=== PATIENT | male | born 1940 | race Caucasian/White ===

== ENCOUNTER → 2017-09-10 | Outpatient (CLI) | payer MEDICARE ==
--- NOTE | 2017-09-10 11:29 | US ---
EXAMINATION TYPE: US kidneys/renal and bladder DATE OF EXAM: 09/10/2017 COMPARISON: NONE CLINICAL HISTORY: R79.89 ABN FINDINGS OF BLOOD CHEMISRTY. Patient on metformin and has ab renal funct ion tests EXAM MEASUREMENTS: Right Kidney: 10.0 x 4.4 x 4.9 cm Left Kidney: 11.8 x 5.6 x 5.8 cm Right Kidney: No hydronephrosis or masses seen Left Kidney: 10.6cm exophytic cyst seen superior pole Bladder: wnl Bilateral Jets seen: yes There is no evidence for hydronephrosis at this point in time. No nephrolithiasis is seen. The urina ry bladder is anechoic. Bilateral ureteral jets are seen. IMPRESSION: Large right simple appearing renal cyst measuring up to 15.8 cm. No evidence of hydronephrosis or nep hrolithiasis.
== END | disposition home or self-care (01) ==
LOC: RADUSWWP 09:36
PROVIDERS: ATTEND Family Medicine
DX: R79.89 Other specified abnormal findings of blood chemistry (principal)
CPT/HCPCS: 76770

== ENCOUNTER → 2017-12-16 | Outpatient (CLI) | payer MEDICARE ==
--- NOTE | 2017-12-16 13:01 | US ---
EXAMINATION TYPE: US kidneys/renal and bladder DATE OF EXAM: 12/16/2017 COMPARISON: US CLINICAL HISTORY: N28.1 Cyst of kidney acquired. F/U renal cyst from previous EXAM MEASUREMENTS: Right Kidney: 10.0 x 4.4 x 5.3 cm Left Kidney: 11.6 x 4.8 x 4.9 cm Right Kidney: No evidence of hydro, possible two small calcifications lower pole 3mm and 5mm in size Left Kidney: Cyst upper pole as seen on previous= 10.0 x 9.6 x 11.2 cm Bladder: wnl Bilateral Jets seen: Only left jet visualized There is no evidence for hydronephrosis at this point in time. No nephrolithiasis is seen. No selma s are identified. The urinary bladder is anechoic. Bilateral ureteral jets are seen. IMPRESSION: 1. Nonobstructing right-sided nephrolithiasis. 2. Large cyst upper pole left kidney.
== END | disposition home or self-care (01) ==
LOC: RADUSWWP 12:11
PROVIDERS: ATTEND Family Medicine
DX: N28.1 Cyst of kidney, acquired (principal); N20.0 Calculus of kidney
CPT/HCPCS: 76770

== ENCOUNTER → 2018-12-24 | Outpatient (CLI) | payer MEDICARE ==
--- NOTE | 2018-12-24 22:52 | CONS ---
CONSULTATION DATE OF SERVICE: 12/24/2018 This patient is a 78-year-old gentleman who has been evaluated in Sleep Center for obstructive sleep apnea-hypopnea syndrome. HISTORY OF PRESENT ILLNESS/SLEEP-WAKE EVALUATION: This patient was diagnosed with obstructive sleep apnea in 2003. His last sleep study was done in 2009. He continues to use his CPAP equipment, but his machine is extremely old. He wakes up from sleep 3 times with nocturia while he is using his CPAP. His sleep schedule is from midnight until 6 or 6:30 in the morning. He does not have a TV in the bedroom. He snores and has episodes of stopped breathing during sleep. No history of hypnagogic hallucinations, sleep paralysis or cataplexy. [place] Sleepiness Scale is significantly increased at 15. PAST MEDICAL HISTORY: Past medical history is positive for: 1. Diabetes. 2. Periodic limb movements in the past. 3. Hyperlipidemia. 4. Sinus problems. 5. Increasing eye pressure. 6. Swelling of the legs. PAST SURGICAL HISTORY: Tooth extractions. MEDICATIONS: 1. Tradjenta. 2. Lisinopril. 3. Glimepiride. 4. Amlodipine. 5. Simvastatin. 6. Aspirin. SOCIAL HISTORY: Negative for smoking or using alcohol. FAMILY HISTORY: Stroke, hypertension, lung problems, diabetes. REVIEW OF SYSTEMS: Awakenings from sleep, sleepiness during the day, swelling of the legs. PHYSICAL EXAMINATION: GENERAL: A pleasant gentleman without distress. VITAL SIGNS: BP 131/74, HR 85, RR 16, height 5 feet 5-3/4 inches, weight 204.4 pounds, body mass index 33.2, temperature 98.0, oxygen saturation at room air 96%. HEENT: PERRLA, EOMI. Evaluation of oropharynx showed tongue protrudes midline. Short distance between soft palate and posterior pharyngeal wall. Restriction of nasal breathing. NECK: Supple. No JVD. Thyroid is not palpable. Wide neck; 16-1/2 inches in circumference. LUNGS: Clear to percussion and to auscultation. Good air exchange. No wheezing or rhonchi. HEART: S1, S2 regular. No murmurs, gallops or rubs. ABDOMEN: Obese. EXTREMITIES: Swelling of ankles 1+ bilaterally. RESORT DESK CLERK: Awake, alert, and oriented X3. Cranial nerves 2 to 7 intact. There is no fasciculation or atrophy. noted. No focal deficits observed. IMPRESSION: 1. History of obstructive sleep apnea, snoring, awakenings from sleep multiple times with nocturia, restriction of nasal breathing, wide neck; obstructive sleep apnea- hypopnea syndrome. 2. Obesity with body mass index of 33.2. 3. Hypertension. 4. Diabetes mellitus. 5. History of periodic limb movements in the past. 6. Hyperlipidemia. 7. Increased eye pressure. 8. History of sinusitis. PLAN: 1. Polysomnography for evaluation of patient's breathing during sleep. 2. CPAP/BiPAP titration if sleep study confirms obstructive sleep apnea-hypopnea syndrome. 3. Preferable position during sleep on the side. 4. No driving if patient feels any sleepiness. 5. I will see patient for follow up visit to explain results of testing and following plan. Thank you very much for allowing me to participate in the management of your patient. Sincerely, Conor Peña MD, PhD, FAASM Diplomat of [employer] [employer] [employer] Chief Clinical Dietitian of [facility] MMODL / IJN: [id number] /
== END | disposition home or self-care (01) ==
LOC: SLEEP 15:13
PROVIDERS: ATTEND Internal Medicine
DX: G47.33 Obstructive sleep apnea (adult) (pediatric) (principal); E66.9 Obesity, unspecified; I10 Essential (primary) hypertension; E11.9 Type 2 diabetes mellitus without complications; E78.5 Hyperlipidemia, unspecified; H40.059 Ocular hypertension, unspecified eye; Z68.33 Body mass index [BMI] 33.0-33.9, adult; Z87.09 Personal history of other diseases of the respiratory system; Z99.89 Dependence on other enabling machines and devices; Z79.82 Long term (current) use of aspirin; Z79.84 Long term (current) use of oral hypoglycemic drugs; Z79.899 Other long term (current) drug therapy
CPT/HCPCS: 99211

== ENCOUNTER → 2019-06-24 | Outpatient (CLI) | payer MEDICARE ==
--- NOTE | 2019-06-24 15:52 | PN ---
PROGRESS NOTE DATE OF SERVICE: 06/24/2019 This patient is an 79-year-old gentleman who has been followed in Sleep Center for treatment of obstructive sleep apnea-hypopnea syndrome. In 2019 we did a polysomnogram which showed severe sleep apnea with apnea-hypopnea index 65.5. Then during titration at the pressure of 10 cm of water, apnea-hypopnea index was reduced to only 0.4 with oxygen level above 92.7%. Today the patient is coming for his first time with his new CPAP unit, which was recommended to use with CPAP pressure of 10 cm of water. The patient is able to use CPAP equipment every night for the whole night. He likes the new machine. It is very quiet compared to his previous unit. I checked his CPAP unit. CPAP pressure is 10 cm of water. The patient demonstrated 100% compliance with treatment, using it every night for more than 4 hours; average usage 6.8 hours per night. Leak is very high at 50 L/minute. The patient is using a nasal pillow mask and possibly opens his mouth. Apnea-hypopnea index is 8.4, which is slightly above the normal range. MEDICATIONS: Tradjenta, lisinopril, glimepiride, amlodipine, simvastatin, aspirin. PHYSICAL EXAMINATION: GENERAL: A pleasant patient in no distress. VITAL SIGNS: BP 148/69, HR 80, RR 16, weight 204, temperature 97.6, oxygen saturation at room air 96%. HEENT: PERRLA, EOMI. Evaluation of oropharynx showed tongue protrudes midline. Moderately low position of soft palate. Mallampati III. Big uvula. Wide pillars. NECK: Supple. No JVD. Thyroid is not palpable. LUNGS: Clear to percussion and to auscultation. Good air exchange. No wheezing or rhonchi. HEART: S1, S2 regular. No murmurs, gallops or rubs. ABDOMEN: Obese. EXTREMITIES: No clubbing or cyanosis. ENVIRONMENTAL HEALTH NURSE: Awake, alert, and oriented X3. Cranial nerves 2 to 7 intact. There is no fasciculation or atrophy. noted. No focal deficits observed. IMPRESSION: 1. Severe obstructive sleep apnea-hypopnea syndrome. The patient demonstrated 100% compliance with treatment, benefitting from treatment. 2. Significant leak reading from the machine; possibly patient opens his mouth during sleep. 3. Hypertension. 4. Diabetes mellitus. 5. Hyperlipidemia. 6. Increased eye pressure. 7. History of sinusitis. PLAN: 1. Patient will continue to use CPAP equipment every night for the whole night. 2. Prescription for chin strap. 3. Losing weight. 4. Sleep hygiene with regular time in bed for 7-1/2 hours. 5. No driving if feeling any sleepiness. Thank you very much for allowing me to participate in the management of your patient. Sincerely, Conor Peña MD, PhD, FAASM Diplomat of [employer] [place] [employer] Project Drilling Engineer of [facility] [place] MMODL / IJN: [id number] /
== END | disposition home or self-care (01) ==
LOC: SLEEP 13:45
PROVIDERS: ATTEND Internal Medicine
DX: G47.33 Obstructive sleep apnea (adult) (pediatric) (principal); I10 Essential (primary) hypertension; E11.9 Type 2 diabetes mellitus without complications; E78.5 Hyperlipidemia, unspecified; Z87.09 Personal history of other diseases of the respiratory system; H57.89 Other specified disorders of eye and adnexa; Z79.84 Long term (current) use of oral hypoglycemic drugs; Z79.82 Long term (current) use of aspirin; Z79.899 Other long term (current) drug therapy

== ENCOUNTER → 2019-12-16 | Outpatient (CLI) | payer MEDICARE ==
--- NOTE | 2019-12-16 16:58 | SFUN ---
SLEEP CENTER FOLLOW UP NOTE DATE OF SERVICE: 12/16/2019 An 79-year-old gentleman who has been followed in Sleep Center for treatment of obstructive sleep apnea-hypopnea syndrome. Patient successfully continues to use his CPAP equipment, sometime during the night, according to him, mask may go to the side. He is using Brevida nasal pillow mask and chinstrap. [place] Sleepiness Scale today is 7. I checked his CPAP unit. CPAP pressure 10 cm of water, usage 30/30 nights for more than 4 hours with average usage is 7 hours per night. High leak 47 L/minute. Apnea- hypopnea index reading 13.7. MEDICATIONS: Tradjenta, lisinopril, glimepiride, amlodipine, simvastatin, aspirin, Latanoprost eyedrops. PHYSICAL EXAM: Patient in no distress, BP 143/64, HR 74, RR 16, height 5, 6, weight 194. Patient lost about 10 pounds since previous visit. Temperature 98.2, oxygen saturation at room air 97%. OROPHARYNX: Low position of soft palate, Mallampati 3. ABDOMEN: Obese. NECK: Supple, no JVD. Thyroid is not palpable. LUNGS: Clear to percussion and to auscultation. Good air exchange. No wheezing or rhonchi. HEART: S1, S2 regular. No murmurs, gallops, or rubs. EXTREMITIES: No clubbing or cyanosis. DIGITAL PUBLISHING SPECIALIST: Awake, alert, and oriented X3. Cranial nerves 2 to 7 intact. There is no fasciculation or atrophy. noted. No focal deficits observed. IMPRESSION: 1. Severe obstructive sleep apnea-hypopnea syndrome, apnea-hypopnea index 65.5 on treatment with CPAP. Patient demonstrated 100% compliance with treatment, but apnea-hypopnea index slightly increased to 13.7 with high leak 47 L/minute. 2. Obesity. 3. Hypertension. 4. Diabetes mellitus. 5. Hyperlipidemia. 6. Increased eye pressure. 7. History of sinusitis. PLAN: 1. I changed pressure in the machine to automatic regimen, range of the pressure 7-14 cm of water. 2. Patient should use chinstrap every night. 3. Start to use new set of mask. 4. No driving if feeling sleepiness. 5. Watching and losing weight. Thank you very much for allowing me in participate in the management of your patients. Sincerely, Conor Peña MD, PhD, FAASM Diplomat of [place] [employer] Specialties [employer] Board of Internal Medicine Strategic Insights Lead of [facility] [place] MMOMER / YASMIN: [id number] /
== END | disposition home or self-care (01) ==
LOC: SLEEP 13:01
PROVIDERS: ATTEND Internal Medicine
DX: G47.33 Obstructive sleep apnea (adult) (pediatric) (principal); E66.9 Obesity, unspecified; I10 Essential (primary) hypertension; E11.9 Type 2 diabetes mellitus without complications; H40.059 Ocular hypertension, unspecified eye; E78.5 Hyperlipidemia, unspecified; Z87.09 Personal history of other diseases of the respiratory system; Z68.31 Body mass index [BMI] 31.0-31.9, adult; Z79.82 Long term (current) use of aspirin; Z79.84 Long term (current) use of oral hypoglycemic drugs; Z79.899 Other long term (current) drug therapy

== ENCOUNTER → 2020-03-09 | Outpatient (CLI) | payer MEDICARE ==
--- NOTE | 2020-03-09 22:41 | SFUN ---
SLEEP CENTER FOLLOW UP NOTE DATE OF SERVICE: 03/09/2020 This patient is an 80-year-old gentleman who has been followed in Sleep Center for treatment of obstructive sleep apnea-hypopnea syndrome. During his previous visit, apnea-hypopnea index had increased, and I changed the regimen of the pressure to automatic. Patient continues to use his equipment every night sleep. He sleeps okay with the machine. [place] Sleepiness Scale today is 8. I checked his CPAP unit. Range of the pressure is 7 to 14 with average pressure 9.5, usage 30/30 nights for more than 4 hours. Average usage 6.8 hours per night. Leak is 34 L/minute. Apnea-hypopnea index 11.1, which includes central apnea-hypopnea index 8.9. During his previous visit, average index was 13.7. Consequently there is some improvement. MEDICATIONS: 1. Tradjenta 5 mg once daily. 2. Lisinopril 10 mg once daily. 3. Glimepiride 1 mg once daily. 4. Amlodipine 5 mg once daily. 5. Simvastatin 20 mg once daily. 6. Aspirin 81 mg once daily. 7. Latanoprost 0.005% eye drops. PHYSICAL EXAMINATION: GENERAL: A pleasant patient in no distress. VITAL SIGNS: BP 150/81, HR 80, RR 15, height 5 feet 5 inches, weight 195 pounds. Body mass index 32.4. Temperature is 98.2, oxygen saturation at room air 97%. HEENT: PERRLA, EOMI. Evaluation of oropharynx showed tongue protrudes midline. Low position of soft palate. Mallampati III. NECK: Supple. No JVD. Thyroid is not palpable. LUNGS: Clear to percussion and to auscultation. Good air exchange. No wheezing or rhonchi. HEART: S1, S2 regular. No murmurs, gallops or rubs. ABDOMEN: Soft, nontender. No organomegaly. Bowel sounds are heard in all four quadrants. EXTREMITIES: No clubbing or cyanosis. FOREPART ROUNDER: Awake, alert, and oriented X3. Cranial nerves 2 to 7 intact. There is no fasciculation or atrophy. noted. No focal deficits observed. IMPRESSION: 1. Obstructive and central sleep apnea-hypopnea syndrome. The patient demonstrated 100% compliance with treatment, benefitting from treatment. Improvement in apnea- hypopnea index compared with the previous visit, but there are still abnormalities of respiration, central apneas in mild range, although no complaints from the patient on quality of sleep. 2. Hypertension. 3. Diabetes mellitus. 4. Obesity. 5. Hyperlipidemia. 6. Increased eye pressure. 7. History of sinusitis. PLAN: 1. Patient will continue to use PAP equipment every night for the whole night. 2. Sleep hygiene with regular time in bed for at least 7-1/2 to 8 hours. 3. Precautions related to driving. No driving if feeling sleepiness. 4. I will maintain all necessary prescription for PAP supplies including mask, tube, filters. 5. Watching weight. 6. No driving if feeling sleepiness. 7. Follow-up visit in 6 months or earlier if patient has any problems. Thank you very much for allowing me to participate in the management of your patient. Sincerely, Conor Peña MD, PhD, FAASM Diplomat of [employer] Specialties [employer] of Internal Medicine Slot Tag Inserter of [facility] [place] MMODL / IJN: [id number] /
== END | disposition home or self-care (01) ==
LOC: SLEEP 13:16
PROVIDERS: ATTEND Internal Medicine
DX: G47.33 Obstructive sleep apnea (adult) (pediatric) (principal); I10 Essential (primary) hypertension; E11.9 Type 2 diabetes mellitus without complications; E66.9 Obesity, unspecified; E78.5 Hyperlipidemia, unspecified; H40.059 Ocular hypertension, unspecified eye; Z99.89 Dependence on other enabling machines and devices; Z79.891 Long term (current) use of opiate analgesic; Z79.899 Other long term (current) drug therapy; Z79.82 Long term (current) use of aspirin; Z79.84 Long term (current) use of oral hypoglycemic drugs

== ENCOUNTER → 2020-09-05 | Outpatient (CLI) | payer MEDICARE ==
--- NOTE | 2020-09-06 08:28 | US ---
EXAMINATION TYPE: US kidneys/renal and bladder DATE OF EXAM: 09/05/2020 COMPARISON: NONE CLINICAL HISTORY: N18.3 STAGE 3 CHRONIC KIDNEY DISEASE. EXAM MEASUREMENTS: Right Kidney: 10.1 x 3.3 x 4.3 cm Left Kidney: 11.1 x 4.2 x 5.5 cm Right Kidney: probable stone measuring 2mm Left Kidney: 11.6 x 8.2 x 11.9cm cyst Bladder: wnl Left jet seen, right jet not visualized There is no evidence for hydronephrosis at this point in time. No solid masses are identified. Th e urinary bladder is anechoic. IMPRESSION: 1. The small nonobstructing right-sided nephrolithiasis. 2. Large cyst arising from the upper pole of the left kidney.
== END | disposition home or self-care (01) ==
LOC: RADUSWWP 15:22
PROVIDERS: ATTEND Internal Medicine Nephrology
DX: N20.0 Calculus of kidney (principal); N28.1 Cyst of kidney, acquired
CPT/HCPCS: 76770

== ENCOUNTER → 2020-09-21 | Outpatient (CLI) | payer MEDICARE ==
--- NOTE | 2020-09-22 04:03 | SFUN ---
SLEEP CENTER FOLLOW UP NOTE DATE OF SERVICE: 09/21/2020 80-year-old gentleman has been followed in Sleep Center for treatment for obstructive and central sleep apnea-hypopnea syndrome. The patient continues to use his CPAP equipment every night and sleeps well. According to him, he maybe wakes up once. [place] Sleepiness Scale today is 8. During one of the previous visits, because apnea-hypopnea index was increased, I changed regimen in the machine to the automatic. I checked CPAP unit. The range of the pressure is 7-14, average pressure is 10.1, usage is 30/30 nights for more than 4 hours. Average 6.6 hours per night. Leak is 32 L/minute. Apnea-hypopnea index increased to 14.8, apnea index 14.2, central apnea index which included in total apnea-hypopnea index is 11.3. MEDICATIONS: Tradjenta 5 mg once a day, lisinopril 10 mg once a day, Glimepiride 1 mg once a day, amlodipine 5 mg once a day, simvastatin 20 mg once a day, aspirin 81 mg once a day, latanoprost eye drops. PHYSICAL EXAMINATION: GENERAL: Patient in no distress. BP 134/72, HR 80, RR 12, height 5 feet 6 inches, weight 194.6, temperature 98.9, oxygen saturation at room air 99%. HEENT: PERRLA, EOMI. Oropharynx low position of soft palate. Mallampati III. NECK: Supple, no JVD. Thyroid is not palpable. LUNGS: Clear to percussion and to auscultation. Good air exchange. No wheezing or rhonchi. HEART: S1, S2 regular. No murmurs, gallops, or rubs. ABDOMEN: Slightly obese. Soft and nontender. Bowel sounds are present. No organomegaly appreciated. EXTREMITIES: No clubbing or cyanosis. CARBURETOR MECHANIC: Awake, alert, and oriented X3. Cranial nerves 2 to 7 intact. There is no fasciculation or atrophy. noted. No focal deficits observed. IMPRESSION: 1. Severe obstructive sleep apnea and central sleep apnea-hypopnea syndrome with apnea- hypopnea index 65.5. Obstructive and central sleep apnea-hypopnea syndrome. The patient demonstrated 100% compliance with rate with treatment. Apnea-hypopnea index increased in mild range which include mostly central apneas benefitting from treatment. 2. Hypertension. 3. Diabetes mellitus. 4. Obesity. 5. Hyperlipidemia. 6. Increased eye pressure. 7. History of sinusitis. PLAN: 1. I discussed with the patient possibility to repeat PAP titration test with the possibility to use a BiPAP machine with ST mode to fix his central sleep apnea abnormalities. At the present time, not to proceed with the test and to use his CPAP equipment. He believe he feels okay. 1. Sleep hygiene with regular time in bed for at least 7-1/2 to 8 hours. 2. Precautions related to driving. No driving if feeling sleepiness. 3. I will maintain all necessary prescription for PAP supplies including mask, tube, filters. 4. Watching weight. 5. Follow-up visit in 6 months or earlier if patient has any problems. Thank you very much for allowing me to participate in management of your patient. Sincerely, Conor Peña MD, PhD, FAASM Diplomat of [place] [employer] of Internal Medicine Die Cast Operator of [facility] [place] MMODL / ADELAN: [id number] /
== END ==
LOC: SLEEP 12:57
PROVIDERS: ATTEND Internal Medicine
DX: G47.33 Obstructive sleep apnea (adult) (pediatric) (principal); I10 Essential (primary) hypertension; E11.9 Type 2 diabetes mellitus without complications; E66.9 Obesity, unspecified; E78.5 Hyperlipidemia, unspecified; H40.059 Ocular hypertension, unspecified eye; Z87.09 Personal history of other diseases of the respiratory system; Z79.84 Long term (current) use of oral hypoglycemic drugs; Z79.899 Other long term (current) drug therapy

== ENCOUNTER 2022-08-08 16:28 | Inpatient (IN) | payer MEDICARE ==
[2022-08-08] MEDS ORDERED: SODIUM CHLORIDE 0.9% 1,000 ML IV STA (17:46)
--- NOTE | 2022-08-08 17:49 | ED ---
Weakness HPI - General Chief complaint: Weakness Stated complaint: recheck Time Seen by Provider: 08/08/22 16:40 Source: patient Mode of arrival: ambulatory Limitations: no limitations - History of Present Illness Initial comments: 82-year-old male past history of diabetes, hypertension and presents to the emergency department reporting generalized weakness and some shortness of breath. States that his symptoms have been going on for the past week. He has been more short of breath with ambulation. Has mild central substernal chest pressure. Denies history of coronary disease. No fevers. Admits to nausea without vomiting. Admits to decreased appetite. No abdominal pain. No diarrhea, consultation, black or bloody stools. No dysuria, hematuria or difficulty voiding. Admits that his has been sick 2. He denies a productive cough. No history of underlying cardiac disease or lung disease. No ripping or tearing patient is back. No history of dysrhythmias. No other alleviating, precipitating or modifying factors - Related Data Home Medications Medication Instructions Recorded Confirmed Cholecalciferol [Vitamin D3 (25 50 mcg PO HS 08/08/22 08/08/22 Mcg = 1000 Iu)] Glimepiride [Amaryl] 1 mg PO DAILY 08/08/22 08/08/22 Latanoprost/Pf [Latanoprost 0.005% 1 drop BOTH EYES HS 08/08/22 08/08/22 Eye Drop] Linagliptin [Tradjenta] 5 mg PO DAILY 08/08/22 08/08/22 lisinopriL [Zestril] 10 mg PO DAILY 08/08/22 08/08/22 Previous Rx's Medication Instructions Recorded Apixaban [Eliquis] 2.5 mg PO BID #60 tab 08/10/22 Amiodarone [Cordarone] 200 mg PO DAILY #30 tab 08/12/22 Metoprolol Tartrate [Lopressor] 50 mg PO BID #60 tab 08/12/22 Psyllium Husk 100% [Metamucil 6 gm PO DAILY packet 08/12/22 Packet] Atorvastatin [Lipitor] 10 mg PO HS #30 tab 08/13/22 Allergies Allergy/AdvReac Type Severity Reaction Status Date / Time Penicillins Allergy Unknown Verified 08/08/22 19:51 Childhood Review of Systems ROS Statement: Those systems with pertinent positive or pertinent negative responses have been documented in the HPI. ROS Other: All systems not noted in ROS Statement are negative. Past Medical History Past Medical History: Diabetes Mellitus, Hypertension, Renal Disease Additional Past Medical History / Comment(s): PNEUMONIA, HIGH CHOLESTROL History of Any Multi-Drug Resistant Organisms: None Reported Past Surgical History: No Surgical Hx Reported Past Psychological History: No Psychological Hx Reported Smoking Status: Never smoker Past Alcohol Use History: None Reported Past Drug Use History: None Reported General Exam Limitations: no limitations General appearance: alert, in no apparent distress Head exam: Present: atraumatic, normocephalic, normal inspection Eye exam: Present: normal appearance, PERRL, EOMI. Absent: scleral icterus, conjunctival injection, periorbital swelling ENT exam: Present: normal exam, mucous membranes moist Neck exam: Present: normal inspection. Absent: tenderness, meningismus, lymphadenopathy Respiratory exam: Present: normal lung sounds bilaterally. Absent: respiratory distress, wheezes, rales, rhonchi, stridor Cardiovascular Exam: Present: regular rate, normal rhythm, normal heart sounds. Absent: systolic murmur, diastolic murmur, rubs, gallop, clicks GI/Abdominal exam: Present: soft, normal bowel sounds. Absent: distended, tenderness, guarding, rebound, rigid Extremities exam: Present: normal inspection, full ROM, normal capillary refill. Absent: tenderness, pedal edema, joint swelling, calf tenderness Back exam: Present: normal inspection Neurological exam: Present: alert, oriented X3, CN II-XII intact Psychiatric exam: Present: normal affect, normal mood Skin exam: Present: warm, dry, intact, normal color. Absent: rash Course Vital Signs 08/08/22 08/08/22 08/08/22 16:40 16:58 17:00 Temperature 98.4 F Pulse Rate 109 H 105 H Pulse Rate [ Vinyl Hanger ] Respiratory 18 17 9 L Rate Blood Pressure 116/70 Blood Pressure [Left Arm Supine] O2 Sat by Pulse 98 Oximetry 08/08/22 08/08/22 08/08/22 17:15 17:30 18:00 Temperature Pulse Rate 104 H 103 H 99 Pulse Rate [ Vinyl Hanger ] Respiratory 18 32 H 15 Rate Blood Pressure 120/72 120/72 120/72 Blood Pressure [Left Arm Supine] O2 Sat by Pulse 97 96 Oximetry 08/08/22 08/08/22 08/08/22 18:30 19:00 19:30 Temperature Pulse Rate 102 H 104 H 99 Pulse Rate [ Vinyl Hanger ] Respiratory 14 34 H 31 H Rate Blood Pressure 120/68 120/68 122/74 Blood Pressure [Left Arm Supine] O2 Sat by Pulse Oximetry 08/08/22 08/08/22 08/08/22 20:00 20:30 21:00 Temperature Pulse Rate 133 H Pulse Rate [ Vinyl Hanger ] Respiratory 13 Rate Blood Pressure 122/74 122/74 104/75 Blood Pressure [Left Arm Supine] O2 Sat by Pulse Oximetry 08/08/22 08/08/22 08/08/22 21:15 21:16 21:30 Temperature Pulse Rate 116 H 108 H Pulse Rate [ Vinyl Hanger ] Respiratory 18 18 11 L Rate Blood Pressure 104/75 104/75 Blood Pressure 104/75 [Left Arm Supine] O2 Sat by Pulse 96 Oximetry 08/08/22 08/08/22 08/08/22 22:00 22:30 23:00 Temperature Pulse Rate 112 H Pulse Rate [ Vinyl Hanger ] Respiratory 12 Rate Blood Pressure 103/76 102/62 99/65 Blood Pressure [Left Arm Supine] O2 Sat by Pulse Oximetry 08/08/22 08/08/22 08/08/22 23:01 23:30 23:45 Temperature Pulse Rate 94 95 Pulse Rate [ 105 H Vinyl Hanger ] Respiratory 18 0 L 18 Rate Blood Pressure 98/63 100/65 Blood Pressure 100/63 [Left Arm Supine] O2 Sat by Pulse 98 95 Oximetry 08/09/22 08/09/22 08/09/22 00:00 00:30 01:00 Temperature Pulse Rate 95 86 88 Pulse Rate [ Vinyl Hanger ] Respiratory Rate Blood Pressure 101/65 102/66 94/60 Blood Pressure [Left Arm Supine] O2 Sat by Pulse Oximetry 08/09/22 08/09/22 08/09/22 07:00 08:00 09:00 Temperature Pulse Rate 58 L 71 65 Pulse Rate [ Vinyl Hanger ] Respiratory 22 16 16 Rate Blood Pressure 99/51 102/60 105/61 Blood Pressure [Left Arm Supine] O2 Sat by Pulse 95 95 96 Oximetry 08/09/22 08/09/22 08/09/22 10:00 11:00 13:21 Temperature Pulse Rate 67 67 70 Pulse Rate [ Vinyl Hanger ] Respiratory 26 H 24 18 Rate Blood Pressure 93/56 103/54 100/60 Blood Pressure [Left Arm Supine] O2 Sat by Pulse 96 96 Oximetry 08/09/22 17:28 Temperature Pulse Rate 90 Pulse Rate [ Vinyl Hanger ] Respiratory 18 Rate Blood Pressure 110/70 Blood Pressure [Left Arm Supine] O2 Sat by Pulse Oximetry EKG Findings - EKG Comments: EKG Findings:: EKG demonstrates sinus rhythm with a rate of 99. IA interval 152. QRS 124. QTC of 409. There is a right bundle branch block. No acute ST segment elevation Medical Decision Making - Medical Decision Making Was pt. sent in by a medical professional or institution (, EMILI, CABLE SWAGER, urgent care, hospital, or shelter...) When possible be specific @ -No Did you speak to anyone other than the patient for history (EMS, parent, family, police, friend...)? What history was obtained from this source @ -No Did you review nursing and triage notes (agree or disagree)? Why? @ -I reviewed and agree with nursing and triage notes Were old charts reviewed (outside hosp., previous admission, EMS record, old EKG, old radiological studies, urgent care reports/EKG's, shelter records)? Report findings @ -No Differential Diagnosis (chest pain, altered mental status, abdominal pain women, abdominal pain men, vaginal bleeding, weakness, fever, dyspnea, syncope, headache, dizziness, GI bleed, back pain, seizure, CVA, palpatations, mental he alth, musculoskeletal)? @ -covid, sepsis, acs, aflutter, afib EKG interpreted by me (3pts min.). @ -yes X-rays interpreted by me (1pt min.). @ -yes CT interpreted by me (1pt min.). @ -yes U/S interpreted by me (1pt. min.). @ -None done What testing was considered but not performed or refused? (CT, X-rays, U/S, labs)? Why? @ -None What meds were considered but not given or refused? Why? @ -None Did you discuss the management of the patient with other professionals (professionals i.e. EMILI Woodward, CABLE SWAGER, lab, RT, psych nurse, psychiatric social worker supervisor, dot compliance specialist, teacher, fire control officer, pillowcase turner)? Give summary @ -Admitting physician Dr. Mendez Was smoking cessation discussed for >3mins.? @ -No Was critical care preformed (if so, how long)? @ -Yes, 35 minutes Were there social determinants of health that impacted care today? How? (Homelessness, low income, unemployed, alcoholism, drug addiction, transportation, low edu. Level, literacy, decrease access to med. care, residential, rehab)? @ -No Was there de-escalation of care discussed even if they declined (Discuss DNR or withdrawal of care, Hospice)? DNR status @ -No What co-morbidities impacted this encounter? (DM, HTN, Smoking, COPD, CAD, Cancer, CVA, ARF, Chemo, Hep., AIDS, mental health diagnosis, sleep apnea, morbid obesity)? @ -htn Was patient admitted / discharged? Hospital course, mention meds given and route, prescriptions, significant lab abnormalities, going to OR and other pertinent info. @ -Upon arrival patient was placed into room 10. A thorough history and physical exam was performed. EKG is obtained which demonstrates normal sinus rhythm. Laboratory studies are conducted and reviewed. Patient is positive for Covid. His d-dimer is 8. Troponin is elevated at 0.220. Patient is sent for CT PE study due to the elevated troponin. It suboptimal study however no central PE. He is heparinized for his new onset A. fib and started on an amiodarone drip. Patient will be admitted to stepdown. Spoke with Dr. Mendez who agreed to admit the patient. No hypoxia noted from the patient however he is given a dose of Decadron for the Covid Undiagnosed new problem with uncertain prognosis? @ -yes Drug Therapy requiring intensive monitoring for toxicity (Heparin, Nitro, Insulin, Cardizem)? @ -yes, amio Were any procedures done? @ -No Diagnosis/symptom? @ -acute chest pain, acute covid, afib with rvr Acute, or Chronic, or Acute on Chronic? @ -acute Uncomplicated (without systemic symptoms) or Complicated (systemic symptoms)? @ -complicated Side effects of treatment? @ -Allergic reaction, sedation Exacerbation, Progression, or Severe Exacerbation? @ -No Poses a threat to life or bodily function? How? (Chest pain, [place], [place], pneumonia, PE, COPD, DKA, ARF, appy, cholecystitis, CVA, Diverticulitis, Homicidal, Suicidal, threat to staff... and all critical care pts) @ -yes - Lab Data Result diagrams: 08/09/22 06:46 08/12/22 06:15 Lab Results 08/08/22 08/08/22 08/08/22 Range/Units 17:56 17:56 17:56 WBC 13.0 H (3.8-10.6) k/uL RBC 3.98 L (4.30-5.90) m/uL Hgb 12.4 L (13.0-17.5) gm/dL Hct 36.4 L (39.0-53.0) % MCV 91.4 (80.0-100.0) fL MCH 31.2 (25.0-35.0) pg MCHC 34.2 (31.0-37.0) g/dL RDW 12.5 (11.5-15.5) % Plt Count 153 (150-450) k/uL MPV 8.3 Neutrophils % 88 % Lymphocytes % 3 % Monocytes % 5 % Eosinophils % 2 % Basophils % 0 % Neutrophils # 11.5 H (1.3-7.7) k/uL Lymphocytes # 0.4 L (1.0-4.8) k/uL Monocytes # 0.7 (0-1.0) k/uL Eosinophils # 0.3 (0-0.7) k/uL Basophils # 0.0 (0-0.2) k/uL PT 11.8 (9.0-12.0) sec INR 1.1 (<1.2) APTT 34.7 H (22.0-30.0) sec D-Dimer 8.07 H (<0.60) mg/L FEU Sodium 130 L (137-145) mmol/L Potassium 4.2 (3.5-5.1) mmol/L Chloride 102 (98-107) mmol/L Carbon Dioxide 22 (22-30) mmol/L Anion Gap 6 mmol/L BUN 25 H (9-20) mg/dL Creatinine 1.68 H (0.66-1.25) mg/dL Est GFR (CKD-EPI)AfAm 43 (>60 ml/min/1.73 sqM) Est GFR (CKD-EPI)NonAf 37 (>60 ml/min/1.73 sqM) Glucose 190 H (74-99) mg/dL Plasma Lactic Acid Alexx (0.7-2.0) mmol/L Calcium 8.5 (8.4-10.2) mg/dL Magnesium 2.1 (1.6-2.3) mg/dL Total Bilirubin 0.5 (0.2-1.3) mg/dL AST 34 (17-59) U/L ALT 49 (4-49) U/L Alkaline Phosphatase 56 (38-126) U/L Troponin I (0.000-0.034) ng/mL NT-Pro-B Natriuret Pep pg/mL Total Protein 5.7 L (6.3-8.2) g/dL Albumin 3.2 L (3.5-5.0) g/dL TSH 1.420 (0.465-4.680) mIU/L Influenza Type A (PCR) (Not Detectd) Influenza Type B (PCR) (Not Detectd) RSV (PCR) (Not Detectd) SARS-CoV-2 (PCR) (Not Detectd) 08/08/22 08/08/22 08/08/22 Range/Units 17:56 17:56 17:56 WBC (3.8-10.6) k/uL RBC (4.30-5.90) m/uL Hgb (13.0-17.5) gm/dL Hct (39.0-53.0) % MCV (80.0-100.0) fL MCH (25.0-35.0) pg MCHC (31.0-37.0) g/dL RDW (11.5-15.5) % Plt Count (150-450) k/uL MPV Neutrophils % % Lymphocytes % % Monocytes % % Eosinophils % % Basophils % % Neutrophils # (1.3-7.7) k/uL Lymphocytes # (1.0-4.8) k/uL Monocytes # (0-1.0) k/uL Eosinophils # (0-0.7) k/uL Basophils # (0-0.2) k/uL PT (9.0-12.0) sec INR (<1.2) APTT (22.0-30.0) sec D-Dimer (<0.60) mg/L FEU Sodium (137-145) mmol/L Potassium (3.5-5.1) mmol/L Chloride (98-107) mmol/L Carbon Dioxide (22-30) mmol/L Anion Gap mmol/L BUN (9-20) mg/dL Creatinine (0.66-1.25) mg/dL Est GFR (CKD-EPI)AfAm (>60 ml/min/1.73 sqM) Est GFR (CKD-EPI)NonAf (>60 ml/min/1.73 sqM) Glucose (74-99) mg/dL Plasma Lactic Acid Alexx 1.0 (0.7-2.0) mmol/L Calcium (8.4-10.2) mg/dL Magnesium (1.6-2.3) mg/dL Total Bilirubin (0.2-1.3) mg/dL AST (17-59) U/L ALT (4-49) U/L Alkaline Phosphatase (38-126) U/L Troponin I 0.220 H* (0.000-0.034) ng/mL NT-Pro-B Natriuret Pep 5630 pg/mL Total Protein (6.3-8.2) g/dL Albumin (3.5-5.0) g/dL TSH (0.465-4.680) mIU/L Influenza Type A (PCR) (Not Detectd) Influenza Type B (PCR) (Not Detectd) RSV (PCR) (Not Detectd) SARS-CoV-2 (PCR) (Not Detectd) 08/08/22 Range/Units 17:56 WBC (3.8-10.6) k/uL RBC (4.30-5.90) m/uL Hgb (13.0-17.5) gm/dL Hct (39.0-53.0) % MCV (80.0-100.0) fL MCH (25.0-35.0) pg MCHC (31.0-37.0) g/dL RDW (11.5-15.5) % Plt Count (150-450) k/uL MPV Neutrophils % % Lymphocytes % % Monocytes % % Eosinophils % % Basophils % % Neutrophils # (1.3-7.7) k/uL Lymphocytes # (1.0-4.8) k/uL Monocytes # (0-1.0) k/uL Eosinophils # (0-0.7) k/uL Basophils # (0-0.2) k/uL PT (9.0-12.0) sec INR (<1.2) APTT (22.0-30.0) sec D-Dimer (<0.60) mg/L FEU Sodium (137-145) mmol/L Potassium (3.5-5.1) mmol/L Chloride (98-107) mmol/L Carbon Dioxide (22-30) mmol/L Anion Gap mmol/L BUN (9-20) mg/dL Creatinine (0.66-1.25) mg/dL Est GFR (CKD-EPI)AfAm (>60 ml/min/1.73 sqM) Est GFR (CKD-EPI)NonAf (>60 ml/min/1.73 sqM) Glucose (74-99) mg/dL Plasma Lactic Acid Alexx (0.7-2.0) mmol/L Calcium (8.4-10.2) mg/dL Magnesium (1.6-2.3) mg/dL Total Bilirubin (0.2-1.3) mg/dL AST (17-59) U/L ALT (4-49) U/L Alkaline Phosphatase (38-126) U/L Troponin I (0.000-0.034) ng/mL NT-Pro-B Natriuret Pep pg/mL Total Protein (6.3-8.2) g/dL Albumin (3.5-5.0) g/dL TSH (0.465-4.680) mIU/L Influenza Type A (PCR) Not Detected (Not Detectd) Influenza Type B (PCR) Not Detected (Not Detectd) RSV (PCR) Not Detected (Not Detectd) SARS-CoV-2 (PCR) Detected A (Not Detectd) Disposition Clinical Impression: New onset a-fib, COVID-19 Disposition: ADMITTED IP TO THIS [facility] Condition: Serious Is patient prescribed a controlled substance at d/c from ED?: No Time of Disposition: 20:54 Decision to Admit Reason: Admit from EC Decision Date: 08/08/22 Decision Time: 20:54
[2022-08-08 18:14] LABS: Basophils % (A) 0 %; Eosinophils # (A) 0.3 k/uL (0-0.7); Eosinophils % (A) 2 %; HCT 36.4 % (39.0-53.0); HGB 12.4 gm/dL (13.0-17.5); Lymphocytes # (A) 0.4 k/uL (1.0-4.8); Lymphocytes % (A) 3 %; MCH 31.2 pg (25.0-35.0); MCHC 34.2 g/dL (31.0-37.0); MCV 91.4 fL (80.0-100.0); Mean Platelet Volume 8.3; Monocytes # (A) 0.7 k/uL (0-1.0); Monocytes % (A) 5 %; Neutrophils # (A) 11.5 k/uL (1.3-7.7); Neutrophils % (A) 88 %; Platelet Count 153 k/uL (150-450); RBC 3.98 m/uL (4.30-5.90); RDW 12.5 % (11.5-15.5)
--- NOTE | 2022-08-08 18:20 | XR ---
EXAMINATION TYPE: XR chest 2V DATE OF EXAM: 08/08/2022 COMPARISON: NONE HISTORY: Difficulty in breathing. TECHNIQUE: Frontal and lateral views of the chest are obtained. FINDINGS: There is no focal air space opacity, pleural effusion, or pneumothorax seen. The cardiac silhouette size is upper limits of normal. The osseous structures are intact. IMPRESSION: No acute process.
[2022-08-08 18:26] LABS: ALT 49 U/L (4-49); AST 34 U/L (17-59); African American GFR (CKD) 43 (>60 ml/min/1.73 sqM); Albumin 3.2 g/dL (3.5-5.0); Alkaline Phosphatase 56 U/L (38-126); Anion Gap 6 mmol/L; Blood Urea Nitrogen 25 mg/dL (9-20); Calcium 8.5 mg/dL (8.4-10.2); Carbon Dioxide 22 mmol/L (22-30); Chloride 102 mmol/L (98-107); Glucose 190 mg/dL (74-99); Magnesium 2.1 mg/dL (1.6-2.3); Non-African American GFR(CKD) 37 (>60 ml/min/1.73 sqM); Potassium 4.2 mmol/L (3.5-5.1); Sodium 130 mmol/L (137-145); Total Bilirubin 0.5 mg/dL (0.2-1.3); Total Protein 5.7 g/dL (6.3-8.2)
[2022-08-08 18:34] LABS: INR 1.1 (<1.2); Partial Thromboplastin Time 34.7 sec (22.0-30.0); Prothrombin Time 11.8 sec (9.0-12.0)
[2022-08-08] MEDS ORDERED: SODIUM CHLORIDE 0.9% 1,000 ML IV ONE (18:56)
--- NOTE | 2022-08-08 20:33 | CT ---
EXAMINATION TYPE: CT chest angio for PE DATE OF EXAM: 08/08/2022 COMPARISON: NONE HISTORY: elevated d-dimer, sob CT DLP: 558.3 mGycm. Automated Exposure Control for Dose Reduction was Utilized. CONTRAST: CTA scan of the thorax is performed with IV Contrast, patient injected with 70 cc mL of Isovue 370, p ulmonary embolism protocol. MIP Images are created on CT scanner and reviewed. FINDINGS: LUNGS: Respiratory motion artifact compromise. This limits evaluation for subcentimeter nodules. Bila teral central multifocal groundglass opacities and mosaic attenuation. No pleural effusion or pneumot horax seen bilaterally. MEDIASTINUM: There is satisfactory enhancement of the pulmonary artery and its branches, there is no CT evidence for pulmonary embolism. There are prominent but subcentimeter bilateral hilar and subcar inal lymph nodes. Tiny anterior inferior pericardial effusion. No cardiomegaly. Small sized hiatal he rnia. Coronary artery calcification is present which is noted marker for underlying coronary artery d isease. Some enhancement of the thoracic aorta without aneurysm or dissection. OTHER: Large thin-walled cyst left mid abdomen partially imaged presumed left renal in origin. Findi ngs correlate with kidney ultrasound September 05, 2020. IMPRESSION: 1. Suboptimal study without acute pulmonary embolism. 2. Bilateral central edema and/or less likely infiltrates likely reflecting fluid overload state. Cor relate clinically.
[2022-08-08] MEDS ORDERED: DEXAMETHASONE SOD PHOSPHATE 10 MG/ML 1 ML VIAL IVP STA (20:52)
[2022-08-08] MEDS ORDERED: AMIODARONE 360 MG in DEXTROSE 5% IN WATER 200 ML IV ONE ×2 (20:53)
[2022-08-08] MEDS ORDERED: HEPARIN SODIUM 1,000 UN/ML (10ML VL) IV PRN (20:53)
[2022-08-08] MEDS ORDERED: HEPARIN SODIUM 1,000 UN/ML (10ML VL) IV ONE (20:53)
[2022-08-08] MEDS ORDERED: DEXTROSE 5% IN WATER 100 ML with AMIODARONE 150 MG IV ONE (20:53)
[2022-08-08] MEDS ORDERED: ACETAMINOPHEN TAB 325 MG TAB PO PRN (20:54)
[2022-08-08] MEDS ORDERED: NALOXONE 0.4 MG/ML 1 ML VIAL IV PRN (20:54)
[2022-08-08] MEDS: HEPARIN SOD,PORK IN 0.45% NACL 25,000 UNIT in 0.45% NACL 1 250ML.BAG IV SCH (21:57)
[2022-08-08] MEDS: ATORVASTATIN 10 MG TAB PO SCH (22:22)
[2022-08-08] MEDS: LATANOPROST 0.005% OPHTH DROPS 2.5 ML BTL BOTH EYES SCH (23:33)
[2022-08-09] MEDS: AMIODARONE 450 MG in DEXTROSE 5% IN WATER 250 ML IV SCH ×4 (02:10→02:31)
[2022-08-09 05:51] LABS: INR 1.2 (<1.2); Prothrombin Time 12.4 sec (9.0-12.0)
[2022-08-09 06:58] LABS: Basophils % (A) 0 %; Eosinophils # (A) 0.1 k/uL (0-0.7); Eosinophils % (A) 1 %; HCT 35.3 % (39.0-53.0); HGB 11.7 gm/dL (13.0-17.5); Lymphocytes # (A) 0.4 k/uL (1.0-4.8); Lymphocytes % (A) 6 %; MCH 30.6 pg (25.0-35.0); MCHC 33.2 g/dL (31.0-37.0); MCV 92.1 fL (80.0-100.0); Mean Platelet Volume 8.6; Monocytes # (A) 0.2 k/uL (0-1.0); Monocytes % (A) 2 %; Neutrophils # (A) 6.6 k/uL (1.3-7.7); Neutrophils % (A) 90 %; Platelet Count 129 k/uL (150-450); RBC 3.83 m/uL (4.30-5.90); RDW 12.7 % (11.5-15.5); WBC 7.3 k/uL (3.8-10.6)
[2022-08-09] MEDS ORDERED: FUROSEMIDE 10 MG/ML 4 ML VIAL IV STA (07:38)
[2022-08-09] MEDS: AMIODARONE 200 MG TAB PO SCH ×2 (08:46→20:56)
[2022-08-09] MEDS: FUROSEMIDE 10 MG/ML 2 ML VIAL IV SCH (09:14)
[2022-08-09] MEDS ORDERED: DEXTROSE 50% SYRINGE 50 ML IVP PRN ×2 (09:30)
[2022-08-09 09:44] LABS: Calcium 8.1 mg/dL (8.4-10.2); Potassium 4.7 mmol/L (3.5-5.1)
[2022-08-09 09:46] LABS: Glucose,Whole Blood 323 mg/dL (70-110)
[2022-08-09] MEDS: INSULIN ASPART (NovoLOG) 100 UNIT/ML VIAL SQ SCH ×4 (09:51→20:56)
[2022-08-09] MEDS: GLIMEPIRIDE 1 MG TAB PO SCH (11:23)
--- NOTE | 2022-08-09 11:37 | CA ---
Transthoracic Echo Report Name: Dk Ogden Age: 82 Gender: M : 1940 Exam Date: 08/09/2022 10:24 Exam Location: [facility] Ht (in): 66 Wt (lb): 182 Ordering Physician: Tulio Osorio MD ([id number]) Attending/Referring Phys: Jo PERRY Tin [employer]ater Milo Miranda RDCS Procedure CPT: Indications: c/p Cardiac Hx: Technical Quality: Fair Contrast 1: Total Dose (mL): Contrast 2: Total Dose (mL): MEASUREMENTS (Male / Female) Normal Values 2D ECHO LV Diastolic Diameter PLAX 5.2 cm 4.2 - 5.9 / 3.9 - 5.3 cm LV Systolic Diameter PLAX 4.6 cm LV Fractional Shortening PLAX 11.4 % IVS Diastolic Thickness 1.3 cm 0.6 - 1.0 / 0.6 - 0.9 cm IVS Systolic Thickness 1.7 cm LVPW Diastolic Thickness 1.2 cm 0.6 - 1.0 / 0.6 - 0.9 cm LVPW Systolic Thickness 1.4 cm LV Relative Wall Thickness 0.5 RV Internal Dim ED PLAX 3.0 cm LVOT Diameter 2.4 cm LA Systolic Diameter LX 4.0 cm 3.0 - 4.0 / 2.7 - 3.8 cm LV Diastolic Volume MOD BP 74.4 cm??? 67 - 155 / 56 - 104 cm??? LV Systolic Volume MOD BP 43.0 cm??? 22 - 58 / 19 - 49 cm??? LV Ejection Fraction MOD BP 42.2 % >= 55 % LV Stroke Volume MOD BP 31.4 cm??? LV Diastolic Volume MOD 4C 101.3 cm??? LV Systolic Volume MOD 4C 47.5 cm??? LV Ejection Fraction MOD 4C 53.1 % LV Stroke Volume MOD 4C 53.8 cm??? LV Diastolic Length 4C 6.9 cm LV Systolic Length 4C 6.6 cm LV Diastolic Volume MOD 2C 53.6 cm??? LV Systolic Volume MOD 2C 34.6 cm??? LV Ejection Fraction MOD 2C 35.5 % LV Stroke Volume MOD 2C 19.0 cm??? LV Diastolic Length 2C 6.7 cm LV Systolic Length 2C 5.8 cm Ascending Aorta Diameter 3.4 cm M-MODE Aortic Root Diameter MM 3.3 cm LA Systolic Diameter MM 3.0 cm LA Ao Ratio MM 0.9 AV Cusp Separation MM 1.8 cm DOPPLER AV Peak Velocity 94.2 cm/s AV Peak Gradient 3.5 mmHg MV Peak Velocity 117.7 cm/s MV Peak Gradient 5.5 mmHg MV Mean Velocity 73.1 cm/s MV Mean Gradient 2.3 mmHg MV Velocity Time Integral 41.5 cm MV Deceleration [place] 295.8 cm/s??? MR Peak Velocity 223.1 cm/s MR Peak Gradient 19.9 mmHg Mitral E Point Velocity 87.4 cm/s Mitral A Point Velocity 118.5 cm/s Mitral E to A Ratio 0.7 MV Deceleration Time 295.6 ms MV E' Velocity 4.7 cm/s Mitral E to MV E' Ratio 18.5 TR Peak Velocity 102.9 cm/s TR Peak Gradient 4.2 mmHg Right Ventricular Systolic Press 9.2 mmHg PV Peak Velocity 71.4 cm/s PV Peak Gradient 2.0 mmHg FINDINGS Left Ventricle Left ventricular ejection fraction is estimated at 50-55 %. Mild concentric left ventricular hypertrophy. Grade 1 diastolic dysfunction. Normal systolic function. Right Ventricle Normal right ventricular size and function. Right Atrium Normal right atrial size. Left Atrium Mild left atrial dilatation. Mitral Valve Mild thickening/calcification of the anterior mitral valve leaflet. Moderate thickening/calcification of the posterior mitral valve leaflet. Mild mitral regurgitation. Aortic Valve Trileaflet aortic valve. Diffuse thickening (sclerosis) of the aortic valve cusps without reduced excursion. Tricuspid Valve Mild tricuspid regurgitation. Pulmonic Valve Trace pulmonic regurgitation. Pericardium Normal pericardium. No pericardial effusion. Aorta Mild aortic dilatation at the level of the sinuses of valsalva (root). Mildly dilated proximal ascending aorta (tube). CONCLUSIONS Normal LV size and systolic function. Ejection fractions in the low end of normal. Mild concentric LVH. Mitral annular calcification and nonspecific thickening of mitral valve leaflets. There is aortic sclerosis without any significant gradient. No pericardial effusion. No pulmonary hypertension Previewed by: Dr. Hiwot Milton MD (Electronically Signed) Final Date: 09 August 2022 11:36
[2022-08-09 12:56] LABS: Glucose,Whole Blood 289 mg/dL (70-110)
--- NOTE | 2022-08-09 14:28 | P.CNPUL ---
History of Present Illness Consult date: 08/09/22 Requesting physician: Theron Mendez Reason for consult: dyspnea, cough Chief complaint: Cough congestion, weakness History of present illness: This is a pleasant 82-year-old male patient with a known history of hypertension, hyperlipidemia, diabetes mellitus. He presented to the emergency room yesterday with a one-month history of upper respiratory symptoms. He states it started in his sinuses and then settled into his lungs. He's also had some issues with nausea. He's had some cough and congestion. Chest x-ray showed no acute pulmonary process. CT angiogram ruled out pulmonary embolism. There is some bilateral central edema reflecting fluid overload. White count 7.3. Hemoglobin 11.7. Platelets 129. Sodium 134. Potassium 4.7 and a curb 16. BUN 32. Creatinine 1.63. Glucose 283. Troponin 0.22, 0.25, 0.30. ProBNP 5630. Influenza screen negative. RSV screen negative. COVID-19 screen positive. He is seen today in consultation in the emergency department. He's currently sitting up in a stretcher. Awake and alert in no acute distress. He is maintaining good O2 saturations in the 90s on room air. He did receive IV diuretics and is feeling less short of breath today compared to yesterday. Echocardiogram revealed preserved left ventricular systolic function with ejection fraction 50-55%. He is currently on a heparin drip. Review of Systems REVIEW OF SYSTEMS: CONSTITUTIONAL: Denies any recent significant weight loss or weight gain. EYES: Denies change in vision. EARS, NOSE, MOUTH, THROAT: Positive for sinus congestion. Denies headaches, denies sore throat. CARDIOVASCULAR: Denies chest pain, palpitations or syncopal episodes. RESPIRATORY: Positive for shortness of breath, cough, congestion no hemoptysis. GASTROINTESTINAL: Positive for nausea. GENITOURINARY: Denies hematuria, denies infections. MUSKULOSKELETAL: Denies pain, denies swelling. INTEGUMENTARY: Denies rash, denies eczema. NEUROLOGICAL: Denies recent memory loss, no recent seizure activity. PSYCHIATRIC: Denies anxiety, denies depression. HEMATOLOGIC/LYMPHATIC: Denies anemia, denies enlarged lymph nodes. Past Medical History Past Medical History: Diabetes Mellitus, Hypertension, Renal Disease Additional Past Medical History / Comment(s): PNEUMONIA, HIGH CHOLESTROL History of Any Multi-Drug Resistant Organisms: None Reported Past Surgical History: No Surgical Hx Reported Past Psychological History: No Psychological Hx Reported Smoking Status: Never smoker Past Alcohol Use History: None Reported Past Drug Use History: None Reported Medications and Allergies Home Medications Medication Instructions Recorded Confirmed Type Aspirin EC [Ecotrin Low Dose] 81 mg PO HS 08/08/22 08/08/22 History Cholecalciferol [Vitamin D3 (25 50 mcg PO HS 08/08/22 08/08/22 History Mcg = 1000 Iu)] Glimepiride [Amaryl] 1 mg PO DAILY 08/08/22 08/08/22 History Latanoprost/Pf [Latanoprost 0.005% 1 drop BOTH EYES HS 08/08/22 08/08/22 History Eye Drop] Linagliptin [Tradjenta] 5 mg PO DAILY 08/08/22 08/08/22 History Simvastatin [Zocor] 20 mg PO HS 08/08/22 08/08/22 History amLODIPine [Norvasc] 5 mg PO HS 08/08/22 08/08/22 History lisinopriL [Zestril] 10 mg PO DAILY 08/08/22 08/08/22 History Allergies Allergy/AdvReac Type Severity Reaction Status Date / Time Penicillins Allergy Unknown Verified 08/08/22 19:51 Childhood Physical Exam Vitals: Vital Signs Temp Pulse Pulse Resp BP BP Pulse Ox 08/09/22 13:21 70 18 100/60 08/09/22 11:00 67 24 103/54 96 08/09/22 10:00 67 26 H 93/56 96 08/09/22 09:00 65 16 105/61 96 08/09/22 08:00 71 16 102/60 95 08/09/22 07:00 58 L 22 99/51 95 08/09/22 01:00 88 94/60 08/09/22 00:30 86 102/66 08/09/22 00:00 95 101/65 08/08/22 23:45 95 18 100/65 95 08/08/22 23:30 94 0 L 98/63 08/08/22 23:01 105 H 18 100/63 98 08/08/22 23:00 99/65 08/08/22 22:30 102/62 08/08/22 22:00 112 H 12 103/76 08/08/22 21:30 108 H 11 L 104/75 08/08/22 21:16 18 104/75 96 08/08/22 21:15 116 H 18 104/75 08/08/22 21:00 133 H 13 104/75 08/08/22 20:30 122/74 08/08/22 20:00 122/74 08/08/22 19:30 99 31 H 122/74 08/08/22 19:00 104 H 34 H 120/68 08/08/22 18:30 102 H 14 120/68 08/08/22 18:00 99 15 120/72 96 08/08/22 17:30 103 H 32 H 120/72 08/08/22 17:15 104 H 18 120/72 97 08/08/22 17:00 105 H 9 L 08/08/22 16:58 17 08/08/22 16:40 98.4 F 109 H 18 116/70 98 Intake and Output 08/08/22 08/09/22 08/09/22 22:59 06:59 14:59 Other: Weight 82.554 kg GENERAL EXAM: Alert, very pleasant 82-year-old male, on room air, comfortable in no apparent distress. HEAD: Normocephalic. EYES: Normal reaction of pupils, equal size. NOSE: Clear with pink turbinates. THROAT: No erythema or exudates. NECK: No masses, no JVD. CHEST: No chest wall deformity. LUNGS: Equal air entry with faint crackles in the posterior bases. CVS: S1 and S2 normal with no audible murmur, regular rhythm. ABDOMEN: No hepatosplenomegaly, normal bowel sounds, no guarding or rigidity. SPINE: No scoliosis or deformity SKIN: No rashes CENTRAL NERVOUS SYSTEM: No focal deficits, tone is normal in all 4 extremities. EXTREMITIES: There is no peripheral edema. No clubbing, no cyanosis. Peripheral pulses are intact. Results - Laboratory Findings CBC and BMP: 08/09/22 06:46 08/09/22 06:46 PT/INR, D-dimer PT 12.4 sec (9.0-12.0) H 08/09/22 03:40 INR 1.2 (<1.2) H 08/09/22 03:40 D-Dimer 8.07 mg/L FEU (<0.60) H 08/08/22 17:56 Abnormal lab findings: Abnormal Labs 08/08/22 08/08/22 08/08/22 17:56 17:56 17:56 WBC 13.0 H RBC 3.98 L Hgb 12.4 L Hct 36.4 L Plt Count Neutrophils # 11.5 H Lymphocytes # 0.4 L PT INR APTT 34.7 H D-Dimer 8.07 H Sodium 130 L Chloride Carbon Dioxide BUN 25 H Creatinine 1.68 H Glucose 190 H POC Glucose (mg/dL) Calcium Troponin I Total Protein 5.7 L Albumin 3.2 L SARS-CoV-2 (PCR) 08/08/22 08/08/22 08/08/22 17:56 17:56 21:53 WBC RBC Hgb Hct Plt Count Neutrophils # Lymphocytes # PT INR APTT D-Dimer Sodium Chloride Carbon Dioxide BUN Creatinine Glucose POC Glucose (mg/dL) Calcium Troponin I 0.220 H* 0.254 H* Total Protein Albumin SARS-CoV-2 (PCR) Detected A 08/09/22 08/09/22 08/09/22 00:16 03:40 03:40 WBC RBC Hgb Hct Plt Count Neutrophils # Lymphocytes # PT 12.4 H INR 1.2 H APTT 47.0 H D-Dimer Sodium Chloride Carbon Dioxide BUN Creatinine Glucose POC Glucose (mg/dL) Calcium Troponin I 0.302 H* Total Protein Albumin SARS-CoV-2 (PCR) 08/09/22 08/09/22 08/09/22 06:46 06:46 09:45 WBC RBC 3.83 L Hgb 11.7 L Hct 35.3 L Plt Count 129 L Neutrophils # Lymphocytes # 0.4 L PT INR APTT D-Dimer Sodium 134 L Chloride 110 H Carbon Dioxide 16 L BUN 32 H Creatinine 1.63 H Glucose 283 H POC Glucose (mg/dL) 323 H Calcium 8.1 L Troponin I Total Protein Albumin SARS-CoV-2 (PCR) 08/09/22 12:54 WBC RBC Hgb Hct Plt Count Neutrophils # Lymphocytes # PT INR APTT D-Dimer Sodium Chloride Carbon Dioxide BUN Creatinine Glucose POC Glucose (mg/dL) 289 H Calcium Troponin I Total Protein Albumin SARS-CoV-2 (PCR) - Diagnostic Findings Chest x-ray: image reviewed CT scan - chest: image reviewed Assessment and Plan Assessment: Dyspnea with cough and congestion possibly related to fluid volume overload and diastolic congestive heart failure. Responded well to Lasix Acute COVID-19 infection without acute COVID-19 pneumonia. Pro-calcitonin pending Episode of atrial fibrillation with rapid ventricular response, currently on a heparin drip Troponin leak History of renal disease with acute on chronic renal failure History of hypertension Hyperlipidemia Diabetes mellitus, type II Plan: The patient was seen and evaluated Chest x-ray, CAT scan, labs and medications reviewed Echocardiogram reviewed Continue IV diuretics Continue vitamin supplements Stable and on room air Cardiology consulted We will continue to follow and make further recommendations based on his clinical status I have personally seen and examined the patient, performed the documentation and the assessment and plan as written. Number of minutes spent on the visit: 20.
[2022-08-09 14:44] LABS: Glucose,Whole Blood 291 mg/dL (70-110)
--- NOTE | 2022-08-09 15:37 | P.HPIM ---
History of Present Illness H&P Date: 08/09/22 Chief Complaint: Tired This is a pleasant 82-year-old patient who follows with Dr. Blank. Chronic stable medical conditions include diabetes, hypertension, hypercholesterolemia, Patient presented with feeling weak some shortness of breath slight cough going on for about a week. Especially with activity. Also had some mid central chest pressure. No radiation. No prior history of any cardiac disease. Some nausea. Decreased appetite. Patient has some diarrhea yesterday. No blood in the stool. Tired. No sputum production. Patient in the ER initially was found to be in atrial fibrillation. Put on IV heparin, IV amiodarone. Then switch to oral amiodarone. Review of systems: GEN.: Tired decreased appetite EYES: None HEENT: None NECK: None RESPIRATORY: Some cough CARDIOVASCULAR: None GASTROINTESTINAL: None GENITOURINARY: None MUSCULOSKELETAL: Some joint pains] LYMPHATICS: None HEMATOLOGICAL: None PSYCHIATRY: None NEUROLOGICAL: None Past medical history to include: Diabetes, hypertension, hypercholesterolemia Social history: . No smoking. No alcohol. Retired. Physical examination: VITAL SIGNS: 98.4, 109, 18, 116/70, 98% room air GENERAL: [BMI 29.4,, reclining in bed. EYES: Pupils equal. Conjunctiva normal. HEENT: External appearance of nose and ears normal, oral cavity grossly normal. NECK: JVD not raised; masses not palpable. HEART: First and second heart sounds are normal; no edema. LUNGS: Respiratory rate normal; clear to auscultation. ABDOMEN: Soft, nontender, liver spleen not palpable, no masses palpable. PSYCH: Alert and oriented x3; mood and affect normal. MUSCULOSKELETAL:No Clubbing/cyanosis;muscles-grossly intact. OA NEUROLOGICAL: Cranial nerves grossly intact; no facial asymmetry, power and sensation grossly intact. LYMPHATICS: No lymph nodes palpable in the axilla and neck INVESTIGATIONS, reviewed in the clinical context: 2-D echocardiogram: EF 50-55% White count 13 hemoglobin 12.4 sodium 1:30 potassium 4.2 BUN 25 creatinine 1.68 blood glucose 190 Troponin I 0.2-0, 0.254, 0.302 COVID-19: PCR: Detected EKG tracing personally reviewed by fl-sinus tachycardia. Right bundle-branch block Chest CTA: No PE. Questionable central prominence Chest x-ray film personally reviewed by me-some pulmonary artery prominence Assessment and plan: -Acute COVID-19 with no hypoxia. Supportive care -Acute diarrhea secondary to COVID-19. Supportive care. Metamucil. -Probable CK D Rule out acute component. UA. Renal ultrasound. -Essential hypertension Amlodipine 5 mg. Hold lisinopril -Diabetes mellitus type 2, oral hypoglycemic, uncontrolled with hyperglycemia Follow Accu-Cheks. Oral hypoglycemic -Probable COVID-19 causing myocarditis. Telemetry. Consult cardiology -Paroxysmal atrial fibrillation, now in sinus rhythm IV heparin. Amiodarone -IV heparin monitoring, follow PTT Consultation to pulmonary, cardiology. Home medications resumed. Discussed with patient. Will Accu-Cheks. Given the complexity and severity of patient's condition expect the patient to be in the hospital at least for 2 overnights Past Medical History Past Medical History: Diabetes Mellitus, Hypertension, Renal Disease Additional Past Medical History / Comment(s): PNEUMONIA, HIGH CHOLESTROL History of Any Multi-Drug Resistant Organisms: None Reported Past Surgical History: No Surgical Hx Reported Past Psychological History: No Psychological Hx Reported Smoking Status: Never smoker Past Alcohol Use History: None Reported Past Drug Use History: None Reported Medications and Allergies Home Medications Medication Instructions Recorded Confirmed Type Aspirin EC [Ecotrin Low Dose] 81 mg PO HS 08/08/22 08/08/22 History Cholecalciferol [Vitamin D3 (25 50 mcg PO HS 08/08/22 08/08/22 History Mcg = 1000 Iu)] Glimepiride [Amaryl] 1 mg PO DAILY 08/08/22 08/08/22 History Latanoprost/Pf [Latanoprost 0.005% 1 drop BOTH EYES HS 08/08/22 08/08/22 History Eye Drop] Linagliptin [Tradjenta] 5 mg PO DAILY 08/08/22 08/08/22 History Simvastatin [Zocor] 20 mg PO HS 08/08/22 08/08/22 History amLODIPine [Norvasc] 5 mg PO HS 08/08/22 08/08/22 History lisinopriL [Zestril] 10 mg PO DAILY 08/08/22 08/08/22 History Allergies Allergy/AdvReac Type Severity Reaction Status Date / Time Penicillins Allergy Unknown Verified 08/08/22 19:51 Childhood Physical Exam Vitals: Vital Signs Temp Pulse Pulse Resp BP BP Pulse Ox 08/09/22 07:00 58 L 22 99/51 95 08/09/22 01:00 88 94/60 08/09/22 00:30 86 102/66 08/09/22 00:00 95 101/65 08/08/22 23:45 95 18 100/65 95 08/08/22 23:30 94 0 L 98/63 08/08/22 23:01 105 H 18 100/63 98 08/08/22 23:00 99/65 08/08/22 22:30 102/62 08/08/22 22:00 112 H 12 103/76 08/08/22 21:30 108 H 11 L 104/75 08/08/22 21:16 18 104/75 96 08/08/22 21:15 116 H 18 104/75 08/08/22 21:00 133 H 13 104/75 08/08/22 20:30 122/74 08/08/22 20:00 122/74 08/08/22 19:30 99 31 H 122/74 08/08/22 19:00 104 H 34 H 120/68 08/08/22 18:30 102 H 14 120/68 08/08/22 18:00 99 15 120/72 96 08/08/22 17:30 103 H 32 H 120/72 08/08/22 17:15 104 H 18 120/72 97 08/08/22 17:00 105 H 9 L 08/08/22 16:58 17 08/08/22 16:40 98.4 F 109 H 18 116/70 98 Intake and Output 08/08/22 08/09/22 08/09/22 22:59 06:59 14:59 Other: Weight 82.554 kg Results CBC & Chem 7: 08/09/22 06:46 08/09/22 06:46 Labs: Abnormal Lab Results - Last 24 Hours (Table) 08/08/22 08/08/22 08/08/22 Range/Units 17:56 17:56 17:56 WBC 13.0 H (3.8-10.6) k/uL RBC 3.98 L (4.30-5.90) m/uL Hgb 12.4 L (13.0-17.5) gm/dL Hct 36.4 L (39.0-53.0) % Plt Count (150-450) k/uL Neutrophils # 11.5 H (1.3-7.7) k/uL Lymphocytes # 0.4 L (1.0-4.8) k/uL PT (9.0-12.0) sec INR (<1.2) APTT 34.7 H (22.0-30.0) sec D-Dimer 8.07 H (<0.60) mg/L FEU Sodium 130 L (137-145) mmol/L BUN 25 H (9-20) mg/dL Creatinine 1.68 H (0.66-1.25) mg/dL Glucose 190 H (74-99) mg/dL Troponin I (0.000-0.034) ng/mL Total Protein 5.7 L (6.3-8.2) g/dL Albumin 3.2 L (3.5-5.0) g/dL SARS-CoV-2 (PCR) (Not Detectd) 08/08/22 08/08/22 08/08/22 Range/Units 17:56 17:56 21:53 WBC (3.8-10.6) k/uL RBC (4.30-5.90) m/uL Hgb (13.0-17.5) gm/dL Hct (39.0-53.0) % Plt Count (150-450) k/uL Neutrophils # (1.3-7.7) k/uL Lymphocytes # (1.0-4.8) k/uL PT (9.0-12.0) sec INR (<1.2) APTT (22.0-30.0) sec D-Dimer (<0.60) mg/L FEU Sodium (137-145) mmol/L BUN (9-20) mg/dL Creatinine (0.66-1.25) mg/dL Glucose (74-99) mg/dL Troponin I 0.220 H* 0.254 H* (0.000-0.034) ng/mL Total Protein (6.3-8.2) g/dL Albumin (3.5-5.0) g/dL SARS-CoV-2 (PCR) Detected A (Not Detectd) 08/09/22 08/09/22 08/09/22 Range/Units 00:16 03:40 03:40 WBC (3.8-10.6) k/uL RBC (4.30-5.90) m/uL Hgb (13.0-17.5) gm/dL Hct (39.0-53.0) % Plt Count (150-450) k/uL Neutrophils # (1.3-7.7) k/uL Lymphocytes # (1.0-4.8) k/uL PT 12.4 H (9.0-12.0) sec INR 1.2 H (<1.2) APTT 47.0 H (22.0-30.0) sec D-Dimer (<0.60) mg/L FEU Sodium (137-145) mmol/L BUN (9-20) mg/dL Creatinine (0.66-1.25) mg/dL Glucose (74-99) mg/dL Troponin I 0.302 H* (0.000-0.034) ng/mL Total Protein (6.3-8.2) g/dL Albumin (3.5-5.0) g/dL SARS-CoV-2 (PCR) (Not Detectd) 08/09/22 Range/Units 06:46 WBC (3.8-10.6) k/uL RBC 3.83 L (4.30-5.90) m/uL Hgb 11.7 L (13.0-17.5) gm/dL Hct 35.3 L (39.0-53.0) % Plt Count 129 L (150-450) k/uL Neutrophils # (1.3-7.7) k/uL Lymphocytes # 0.4 L (1.0-4.8) k/uL PT (9.0-12.0) sec INR (<1.2) APTT (22.0-30.0) sec D-Dimer (<0.60) mg/L FEU Sodium (137-145) mmol/L BUN (9-20) mg/dL Creatinine (0.66-1.25) mg/dL Glucose (74-99) mg/dL Troponin I (0.000-0.034) ng/mL Total Protein (6.3-8.2) g/dL Albumin (3.5-5.0) g/dL SARS-CoV-2 (PCR) (Not Detectd)
--- NOTE | 2022-08-09 17:02 | US ---
EXAMINATION TYPE: US kidneys/renal and bladder DATE OF EXAM: 08/09/2022 COMPARISON: 09/05/2020 CLINICAL HISTORY: 82-year-old male Evaluate for CKD. EXAM MEASUREMENTS: Right Kidney: 9.4 x 4.1 x 3.8 cm Left Kidney: 11.8 x 4.8 x 6.0 cm Right Kidney: 3 mm echogenic midpole focus. No hydronephrosis. Left Kidney: Large cyst at the upper pole measures 10.9 x 10.3 x 12.7cm . No hydronephrosis. Bladder: wnl Bilateral Jets seen: yes Prostate = mildly enlarged at 4.7cm IMPRESSION: 1. No hydronephrosis. 2. A 3 mm nonobstructive right renal calculus. 3. Large 12.7 cm cyst from the upper pole of the left kidney. 4. Mild prostatomegaly of 4.7 cm wide.
[2022-08-09 18:54] LABS: Glucose,Whole Blood 347 mg/dL (70-110)
--- NOTE | 2022-08-09 19:52 | CONS ---
CONSULTATION CHIEF COMPLAINT: Chest pain. HISTORY OF PRESENT ILLNESS: Dk is an 82-year-old gentleman with history of hypertension, dyslipidemia, diabetes, prior multiple episodes of chest discomfort without any cardiac history, who presented to hospital complaining of chest pain. He describes it as a sharp mild intensity precordial chest discomfort, unrelated to exertion and not associated with diaphoresis. On his initial presentation, he apparently was in atrial fibrillation and subsequently converted to sinus rhythm with intravenous amiodarone. I do not have the EKG with me. The 2 EKGs that are there both show that the patient is in sinus rhythm. The patient is admitted to hospital with new-onset atrial fibrillation and also tested positive for COVID. His troponins are mildly elevated at 0.2, 0.2, and 0.3 and BNP is elevated at 5630. He had a CT scan of the chest that was negative for pulmonary embolism. Chest x- ray was unremarkable. CT chest showed some pleural effusion bilaterally. His EKG shows sinus rhythm with PVCs and right bundle-branch block. The patient's clinical presentation is consistent with paroxysmal atrial fibrillation with elevated troponin, probably related to it, and acute onset congestive heart failure. The patient also has COVID. We will continue the patient on intravenous heparin, change the IV amiodarone to p.o., try and obtain the initial EKG that showed atrial fibrillation, and convert the heparin into Eliquis or Xarelto. I will obtain a 2D echo to assess his LV function and wall motion, continue the aspirin and Lipitor that he is on, and when the blood pressure improves, start him on beta-blockers and VIOLETA inhibitors. PAST MEDICAL HISTORY: Significant for hypertension, dyslipidemia, and diabetes. MEDICATIONS AT HOME: Include: 1. Aspirin. 2. Amaryl. 3. Tradjenta. 4. Zocor. 5. Norvasc. 6. Zestril. ALLERGIES: Penicillin. FAMILY HISTORY: Negative for premature coronary artery disease. SOCIAL HISTORY: Negative for current smoking, EtOH abuse, or drug abuse. REVIEW OF SYSTEMS: HEENT: Unremarkable. CARDIAC: As described above. RESPIRATORY: Negative. GI: Negative. GENITOURINARY: Negative. ALLERGY/IMMUNOLOGY: Negative. SKIN: Negative. MUSCULOSKELETAL: Negative. ENDOCRINE: Negative. DERM: Negative. CONSTITUTIONAL: Negative. ONCOLOGICAL: Negative. [employer]: Negative. Rest of the system review is not relevant. PHYSICAL EXAMINATION: GENERAL: Comfortable at rest. VITAL SIGNS: Stable. O2 saturation is 95% on room air. NECK: There is no jugular venous distention. Carotid upstroke is normal. There is no bruit. CHEST: Reveals good air entry bilaterally. I do not hear any crackles or rhonchi. HEART: Reveals first and second heart sounds. No gallop. Has a systolic murmur at the apex. ABDOMEN: Soft. EXTREMITIES: Did not reveal any edema. Peripheral pulses are palpable. ASSESSMENT: 1. Paroxysmal atrial fibrillation. 2. Elevated troponin, probably due to a combination of atrial fibrillation with rapid ventricular rate and COVID infection. 3. COVID infection. 4. Acute onset congestive heart failure. PLAN: We will treat the patient with intravenous diuretics, obtain a 2D echo, continue IV heparin, and continue the oral amiodarone and decide on further course of action based on how the patient does. KOFFI / ADELAN: [id number] /
[2022-08-09 20:26] LABS: Glucose,Whole Blood 376 mg/dL (70-110)
[2022-08-09] MEDS: CHOLECALCIFEROL 25 MCG (1000 IU) TABLET PO SCH (20:56)
[2022-08-09] MEDS: INSULIN DETEMIR (LEVEMIR) 100 UNIT/ML SYR SQ SCH (20:56)
[2022-08-09] MEDS: ATORVASTATIN 10 MG TAB PO SCH (20:56)
[2022-08-09] MEDS: PSYLLIUM HUSK 100% 6 GM PACKET PO SCH (20:56)
[2022-08-09] MEDS ORDERED: ASPIRIN 81 MG PO SCH (21:00)
[2022-08-09] MEDS: HEPARIN SOD,PORK IN 0.45% NACL 25,000 UNIT in 0.45% NACL 1 250ML.BAG IV SCH (22:39)
[2022-08-09] MEDS: LATANOPROST 0.005% OPHTH DROPS 2.5 ML BTL BOTH EYES SCH (22:39)
[2022-08-10 06:30] LABS: Glucose,Whole Blood 209 mg/dL (70-110)
[2022-08-10] MEDS: GLIMEPIRIDE 1 MG TAB PO SCH (06:43)
[2022-08-10] MEDS: INSULIN ASPART (NovoLOG) 100 UNIT/ML VIAL SQ SCH ×4 (06:44→20:54)
[2022-08-10 07:46] LABS: Albumin 2.8 g/dL (3.5-5.0); Calcium 8.6 mg/dL (8.4-10.2); Potassium 4.3 mmol/L (3.5-5.1); Total Bilirubin 0.2 mg/dL (0.2-1.3); Total Protein 5.4 g/dL (6.3-8.2)
[2022-08-10] MEDS: AMIODARONE 200 MG TAB PO SCH ×2 (09:38→20:54)
[2022-08-10] MEDS: FUROSEMIDE 10 MG/ML 2 ML VIAL IV SCH (09:38)
[2022-08-10] MEDS: LINAGLIPTIN 5 MG TABLET PO SCH (09:38)
[2022-08-10] MEDS: PSYLLIUM HUSK 100% 6 GM PACKET PO SCH ×2 (09:41→20:49)
--- NOTE | 2022-08-10 11:31 | P.PN ---
Subjective Progress Note Date: 08/10/22 HISTORY OF PRESENT ILLNESS: This is a 82-year-old male who does not follow with a top waddy. Patient has a history of hypertension, hyperlipidemia, and diabetes. Patient is admitted to the hospital secondary to Covid. Patient was also found to have atrial fibrillation and acute congestive heart failure. Patient examined this morning at the bedside. Patient denies chest pain or pressure. He reports mild shortness of breath. He remains on IV Lasix 20 mg daily. Patient's creatinine remained stable at 1.75. Telemetry reveals sinus mechanism in the 80s. Patient remains on IV heparin. Echocardiogram completed revealing EF 50-55%. PHYSICAL EXAM: Thorough physical exam not completed secondary to limited evaluation/examination due to Covid19 ASSESSMENT: Covid 19 Abnormal troponins, likely secondary to combination of atrial fibrillation with RVR and Covid, no evidence of ACS New-onset paroxysmal atrial fibrillation, currently maintaining sinus mechanism Acute onset congestive heart failure with preserved LV function, 5055% Acute kidney injury Hypertension Hyperlipidemia Diabetes PLAN: Discontinue IV heparin. Begin Eliquis 2.5mg BID secondary to patient's age and kidney function Case management consulted for Eliquis coverage Discontinue aspirin Continue oral amiodarone Continue IV Lasix. Anticipate transition to oral dosing tomorrow Daily weights, accurate I&O, and monitoring of kidney function Add metoprolol 25 mg twice a day Further recommendations pending patient's course Nurse practitioner note has been reviewed by physician. Signing provider agrees with the documented findings, assessment, and plan of care. Objective - Vital Signs Vital signs: Vital Signs Temp 98.1 F 08/10/22 09:37 Pulse 89 08/10/22 09:37 Resp 18 08/10/22 09:37 BP 154/51 08/10/22 09:37 Pulse Ox 97 08/10/22 09:37 FiO2 Intake & Output 08/09/22 08/10/22 08/10/22 18:59 06:59 18:59 Intake Total 168 Output Total 300 250 Balance -300 -82 Intake: Intake, IV Titration 50 Amount Heparin Sod,Pork in 0.45% 50 NaCl 25,000 unit In 0.45 % NaCl 1 250ml.bag @ 12 UNITS/KG/HR 9.906 mls/hr IV .Q24H REED Rx#: [id number] Oral 118 Output: Urine 300 250 Other: Voiding Method Urinal # Voids 1 - Labs CBC & Chem 7: 08/09/22 06:46 08/10/22 06:51 Labs: Abnormal Lab Results - Last 24 Hours (Table) 08/09/22 08/09/22 08/09/22 Range/Units 09:29 12:54 14:42 APTT (22.0-30.0) sec Sodium (137-145) mmol/L Chloride (98-107) mmol/L Carbon Dioxide (22-30) mmol/L BUN (9-20) mg/dL Creatinine (0.66-1.25) mg/dL Glucose (74-99) mg/dL POC Glucose (mg/dL) 289 H 291 H (70-110) mg/dL Total Protein (6.3-8.2) g/dL Albumin (3.5-5.0) g/dL Procalcitonin 1.17 H (0.02-0.09) ng/mL 08/09/22 08/09/22 08/10/22 Range/Units 18:52 20:25 06:28 APTT (22.0-30.0) sec Sodium (137-145) mmol/L Chloride (98-107) mmol/L Carbon Dioxide (22-30) mmol/L BUN (9-20) mg/dL Creatinine (0.66-1.25) mg/dL Glucose (74-99) mg/dL POC Glucose (mg/dL) 347 H 376 H 209 H (70-110) mg/dL Total Protein (6.3-8.2) g/dL Albumin (3.5-5.0) g/dL Procalcitonin (0.02-0.09) ng/mL 08/10/22 08/10/22 Range/Units 06:51 06:51 APTT 34.1 H (22.0-30.0) sec Sodium 135 L (137-145) mmol/L Chloride 110 H (98-107) mmol/L Carbon Dioxide 16 L (22-30) mmol/L BUN 53 H (9-20) mg/dL Creatinine 1.75 H (0.66-1.25) mg/dL Glucose 193 H (74-99) mg/dL POC Glucose (mg/dL) (70-110) mg/dL Total Protein 5.4 L (6.3-8.2) g/dL Albumin 2.8 L (3.5-5.0) g/dL Procalcitonin (0.02-0.09) ng/mL
[2022-08-10 11:32] LABS: Glucose,Whole Blood 322 mg/dL (70-110)
[2022-08-10] MEDS: METOPROLOL TARTRATE 25 MG TAB PO SCH ×2 (11:49→20:54)
[2022-08-10] MEDS: APIXABAN 2.5 MG TABLET PO SCH ×2 (11:49→20:54)
--- NOTE | 2022-08-10 12:57 | XR ---
EXAMINATION TYPE: XR chest 1V portable DATE OF EXAM: 08/10/2022 COMPARISON: 08/08/2022 HISTORY: CHF/Covid TECHNIQUE: Single frontal view of the chest is obtained. FINDINGS: There is no focal air space opacity, pleural effusion, or pneumothorax seen. The cardiac silhouette size is within normal limits. The osseous structures are intact. IMPRESSION: No acute process.
--- NOTE | 2022-08-10 13:30 | P.PN ---
Subjective Progress Note Date: 08/10/22 Principal diagnosis: Acute diastolic congestive heart failure and acute COVID-19 infection atrial fibrillation with RVR This is a pleasant 82-year-old male patient with a known history of hypertension, hyperlipidemia, diabetes mellitus. He presented to the emergency room yesterday with a one-month history of upper respiratory symptoms. He states it started in his sinuses and then settled into his lungs. He's also had some issues with nausea. He's had some cough and congestion. Chest x-ray showed no acute pulmonary process. CT angiogram ruled out pulmonary embolism. There is some bilateral central edema reflecting fluid overload. White count 7.3. Hemoglobin 11.7. Platelets 129. Sodium 134. Potassium 4.7 and a curb 16. BUN 32. Creatinine 1.63. Glucose 283. Troponin 0.22, 0.25, 0.30. ProBNP 5630. Influenza screen negative. RSV screen negative. COVID-19 screen positive. He is seen today in consultation in the emergency department. He's currently sitting up in a stretcher. Awake and alert in no acute distress. He is maintaining good O2 saturations in the 90s on room air. He did receive IV diuretics and is feeling less short of breath today compared to yesterday. Echocardiogram revealed preserved left ventricular systolic function with eje ction fraction 50-55%. He is currently on a heparin drip. Reevaluated today on 08/10/2022 patient is resting in bed, doing well, relatively asymptomatic, significantly improved compared to yesterday. Hardly any pulmonary symptoms, his O2 sats is 98% on room air. Patient remains afebrile with a temp of 98 1. Blood pressure 125/58 and heart rate is 80 electrolytes are normal renal profile showed BUN of 53 creatinine 1.75, hence will cut down on diuretics, patient was aggressively diuresed on presentation for presumptive acute diastolic congestive heart failure Objective - Vital Signs Vital signs: Vital Signs Temp 98.1 F 08/10/22 09:37 Pulse 84 08/10/22 11:49 Resp 16 08/10/22 11:49 BP 125/58 08/10/22 11:49 Pulse Ox 98 08/10/22 11:49 FiO2 Intake & Output 08/09/22 08/10/22 08/10/22 18:59 06:59 18:59 Intake Total 168 Output Total 300 250 Balance -300 -82 Intake: Intake, IV Titration 50 Amount Heparin Sod,Pork in 0.45% 50 NaCl 25,000 unit In 0.45 % NaCl 1 250ml.bag @ 12 UNITS/KG/HR 9.906 mls/hr IV .Q24H [facility] Rx#: [id number] Oral 118 Output: Urine 300 250 Other: Voiding Method Urinal # Voids 1 - Exam Physical Exam: Revealed a 82-year-old white male, in no distress. On room air. Head: Atraumatic, normocephalic. HEENT:[Neck is supple.] [No neck masses.] [No thyromegaly.] [No JVD.] Chest: [Clear throughout, no crackles, no rhonchi, no wheezes.] Cardiac Exam: [Normal S1 and S2, no S3 gallop, no murmur.] Abdomen: [Soft, nontender, no megaly, no rebound, no guarding, normal bowel sounds.] Extremities: [No clubbing, no edema, no cyanosis.] Neurological Exam: [No focal neurologic deficit.] Alert oriented 3. Psychiatric: Normal mood affect and normal mental status examination. Skin: No rashes. - Labs CBC & Chem 7: 08/09/22 06:46 08/10/22 06:51 Labs: Abnormal Lab Results - Last 24 Hours (Table) 08/09/22 08/09/22 08/09/22 Range/Units 09:29 14:42 18:52 APTT (22.0-30.0) sec Sodium (137-145) mmol/L Chloride (98-107) mmol/L Carbon Dioxide (22-30) mmol/L BUN (9-20) mg/dL Creatinine (0.66-1.25) mg/dL Glucose (74-99) mg/dL POC Glucose (mg/dL) 291 H 347 H (70-110) mg/dL Total Protein (6.3-8.2) g/dL Albumin (3.5-5.0) g/dL Procalcitonin 1.17 H (0.02-0.09) ng/mL 08/09/22 08/10/22 08/10/22 Range/Units 20:25 06:28 06:51 APTT (22.0-30.0) sec Sodium 135 L (137-145) mmol/L Chloride 110 H (98-107) mmol/L Carbon Dioxide 16 L (22-30) mmol/L BUN 53 H (9-20) mg/dL Creatinine 1.75 H (0.66-1.25) mg/dL Glucose 193 H (74-99) mg/dL POC Glucose (mg/dL) 376 H 209 H (70-110) mg/dL Total Protein 5.4 L (6.3-8.2) g/dL Albumin 2.8 L (3.5-5.0) g/dL Procalcitonin (0.02-0.09) ng/mL 08/10/22 08/10/22 Range/Units 06:51 11:30 APTT 34.1 H (22.0-30.0) sec Sodium (137-145) mmol/L Chloride (98-107) mmol/L Carbon Dioxide (22-30) mmol/L BUN (9-20) mg/dL Creatinine (0.66-1.25) mg/dL Glucose (74-99) mg/dL POC Glucose (mg/dL) 322 H (70-110) mg/dL Total Protein (6.3-8.2) g/dL Albumin (3.5-5.0) g/dL Procalcitonin (0.02-0.09) ng/mL Assessment and Plan Assessment: Impression: Acute diastolic congestive heart failure Acute COVID-19 infection New onset paroxysmal atrial fibrillation, presently in sinus rhythm Acute kidney injury Benign essential hypertension Diabetes2 Dyslipidemia Recommendation: Continue diuretics however cut down the dose Continue COVID-19 cocktail Consider discharge planning in the next 24-48 hours Cardiology is addressing his cardiac issues Monitor renal profile while on diuretics. Time with Patient: Less than 30
[2022-08-10] MEDS: DEXTROSE 5% IN WATER 1,000 ML with SODIUM BICARB (1 MEQ/ML) 50 ML IV SCH (13:33)
[2022-08-10 16:30] LABS: Glucose,Whole Blood 237 mg/dL (70-110)
--- NOTE | 2022-08-10 17:21 | P.PN ---
Progress Note - Text Progress Note Date: 08/10/22 Chief Complaint: Tired This is a pleasant 82-year-old patient who follows with Dr. Blank. Chronic stable medical conditions include diabetes, hypertension, hypercholesterolemia, Patient presented with feeling weak some shortness of breath slight cough going on for about a week. Especially with activity. Also had some mid central chest pressure. No radiation. No prior history of any cardiac disease. Some nausea. Decreased appetite. Patient has some diarrhea yesterday. No blood in the stool. Tired. No sputum production. Patient in the ER initially was found to be in atrial fibrillation. Put on IV heparin, IV amiodarone. Then switch to oral amiodarone. Admitted with paroxysmal atrial fibrillation, troponin positive, acute COVID-19 with no hypoxia, August 10: Looking more restful today. Diarrhea resolved. Changed to IV Lasix 20 mg per cardiology. Tolerating diet. Breathing stable. Appetite better. Put on bicarbonate drip at 50 mL an hour. Also started on eliquis. IV heparin discontinued. Patient had been changed over to by mouth amiodarone. Active Medications Acetaminophen (Acetaminophen Tab 325 Mg Tab) 650 mg PO Q6HR PRN PRN Reason: Mild Pain or Fever > 100.5 Amiodarone HCl (Amiodarone 200 Mg Tab) 200 mg PO BID [facility] Last Admin: 08/10/22 09:38 Dose: 200 mg Apixaban (Apixaban 2.5 Mg Tablet) 2.5 mg PO BID [facility]; Protocol Last Admin: 08/10/22 11:49 Dose: 2.5 mg Atorvastatin Calcium (Atorvastatin 10 Mg Tab) 10 mg PO [facility] Last Admin: 08/09/22 20:56 Dose: 10 mg Cholecalciferol (Cholecalciferol 25 Mcg (1000 Iu) Tablet) 50 mcg PO [facility] Last Admin: 08/09/22 20:56 Dose: 50 mcg Dextrose/Water (Dextrose 50% Syringe 50 Ml) 25 ml IVP PER PROTOCOL PRN; Protocol PRN Reason: Hypoglycemia Dextrose/Water (Dextrose 50% Syringe 50 Ml) 50 ml IVP PER PROTOCOL PRN; Protocol PRN Reason: Hypoglycemia Furosemide (Furosemide 10 Mg/Ml 2 Ml Vial) 20 mg IV DAILY [facility] Last Admin: 08/10/22 09:38 Dose: 20 mg Glimepiride (Glimepiride 1 Mg Tab) 1 mg PO AC-BRKFST [facility] Last Admin: 08/10/22 06:43 Dose: 1 mg Sodium Bicarbonate 50 ml/ (Dextrose/Water) 1,050 mls @ 50 mls/hr IV .Q21H [facility] Last Admin: 08/10/22 13:33 Dose: 50 mls/hr Insulin Aspart (Insulin Aspart (Novolog) 100 Unit/Ml Vial) 0 unit SQ [facility]; Protocol Last Admin: 08/10/22 16:58 Dose: 4 unit Insulin Detemir (Insulin Detemir (Levemir) 100 Unit/Ml Syr) 10 unit SQ HS [facility] Last Admin: 08/09/22 20:56 Dose: 10 unit Latanoprost (Latanoprost 0.005% Ophth Drops 2.5 Ml Btl) 1 drops BOTH EYES [facility] Last Admin: 08/09/22 22:39 Dose: Not Given Linagliptin (Linagliptin 5 Mg Tablet) 5 mg PO DAILY [facility] Last Admin: 08/10/22 09:38 Dose: 5 mg Metoprolol Tartrate (Metoprolol Tartrate 25 Mg Tab) 25 mg PO BID [facility] Last Admin: 08/10/22 11:49 Dose: 25 mg Naloxone HCl (Naloxone 0.4 Mg/Ml 1 Ml Vial) 0.2 mg IV Q2M PRN PRN Reason: Opioid Reversal Psyllium Hydrophilic Mucilloid (Psyllium Husk 100% 6 Gm Packet) 6 gm PO BID [facility] Last Admin: 08/10/22 09:41 Dose: Not Given Past medical history to include: Diabetes, hypertension, hypercholesterolemia Social history: . No smoking. No alcohol. Retired. Physical examination: VITAL SIGNS: 98.1, 65, 15, 1:30/73, 98% room air GENERAL: [BMI 29.4,, reclining in bed. Comfortable EYES: Pupils equal. Conjunctiva normal. HEENT: External appearance of nose and ears normal, oral cavity grossly normal. NECK: JVD not raised; masses not palpable. HEART: First and second heart sounds are normal; no edema. LUNGS: Respiratory rate normal; clear to auscultation. ABDOMEN: Soft, nontender, liver spleen not palpable, no masses palpable. PSYCH: Alert and oriented x3; mood and affect normal. MUSCULOSKELETAL:No Clubbing/cyanosis;muscles-grossly intact. OA INVESTIGATIONS, reviewed in the clinical context: Procalcitonin 1.17 Ultrasound kidney.: Cyst found. No hydronephrosis. August 10 dose: Sodium 135 potassium 4.3 BUN 53 creatinine 1.75 albumin 2.8 2-D echocardiogram: EF 50-55% White count 13 hemoglobin 12.4 sodium 1:30 potassium 4.2 BUN 25 creatinine 1.68 blood glucose 190 Troponin I 0.2-0, 0.254, 0.302 COVID-19: PCR: Detected EKG tracing personally reviewed by me-sinus tachycardia. Right bundle-branch block Chest CTA: No PE. Questionable central prominence Chest x-ray film personally reviewed by me-some pulmonary artery prominence Assessment and plan: -Acute COVID-19 with no hypoxia. Supportive care -Acute diarrhea secondary to COVID-19.: Improved Supportive care. Metamucil. -Probable CK D Rule out acute component. UA. Renal ultrasound-unremarkable -Essential hypertension Amlodipine 5 mg. Hold lisinopril -Diabetes mellitus type 2, oral hypoglycemic, uncontrolled with hyperglycemia Follow Accu-Cheks. 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 Telemetry. Follow with cardiology -Metabolic acidosis secondary to kidney failure Bicarbonate drip at 50 mL an hour. -Paroxysmal atrial fibrillation, now in sinus rhythm IV heparin changed on eliquis. Amiodarone 200 mg twice a day -IV heparin monitoring, follow PTT-discontinued
[2022-08-10 18:41] LABS: Appearance,Urine Clear (Clear); Bacteria,Urine Occasional /hpf; Bilirubin,Urine Negative (Negative); Blood,Urine Trace (Negative); Color,Urine Light Yellow; Glucose,Urine (UA) 3+ (Negative); Ketones,Urine Negative (Negative); Leukocyte Esterase,Urine Negative (Negative); Mucus,Urine Rare /hpf; Nitrite,Urine Negative (Negative); Protein,Urine Trace (Negative); RBC,Urine 1 /hpf (0-5); Specific Gravity,Urine 1.015 (1.001-1.035); Squamous Epithelial Cell,Urine <1 /hpf (0-4); Urobilinogen,Urine <2.0 mg/dL (<2.0); WBC,Urine 2 /hpf (0-5)
[2022-08-10 20:23] LABS: Glucose,Whole Blood 324 mg/dL (70-110)
[2022-08-10] MEDS: CHOLECALCIFEROL 25 MCG (1000 IU) TABLET PO SCH (20:54)
[2022-08-10] MEDS: INSULIN DETEMIR (LEVEMIR) 100 UNIT/ML SYR SQ SCH (20:54)
[2022-08-10] MEDS: ATORVASTATIN 10 MG TAB PO SCH (20:54)
[2022-08-10] MEDS: LATANOPROST 0.005% OPHTH DROPS 2.5 ML BTL BOTH EYES SCH (22:27)
[2022-08-11 06:22] LABS: Glucose,Whole Blood 131 mg/dL (70-110)
[2022-08-11] MEDS: INSULIN ASPART (NovoLOG) 100 UNIT/ML VIAL SQ SCH ×4 (06:45→20:47)
[2022-08-11] MEDS: GLIMEPIRIDE 1 MG TAB PO SCH (06:47)
--- NOTE | 2022-08-11 07:37 | XR ---
EXAMINATION TYPE: XR chest 1V DATE OF EXAM: 08/11/2022 COMPARISON: 08/10/2022 HISTORY: Follow-up CHF TECHNIQUE: Single frontal view of the chest is obtained. FINDINGS: There is no focal air space opacity, pleural effusion, or pneumothorax seen. The cardiac silhouette size is within normal limits. The osseous structures are intact. IMPRESSION: No acute process.
[2022-08-11] MEDS: LINAGLIPTIN 5 MG TABLET PO SCH (08:26)
[2022-08-11] MEDS: FUROSEMIDE 10 MG/ML 2 ML VIAL IV SCH (08:26)
[2022-08-11] MEDS: AMIODARONE 200 MG TAB PO SCH ×2 (08:26→20:47)
[2022-08-11] MEDS: APIXABAN 2.5 MG TABLET PO SCH ×2 (08:26→20:47)
[2022-08-11] MEDS: METOPROLOL TARTRATE 25 MG TAB PO SCH ×2 (08:26→20:47)
[2022-08-11] MEDS: PSYLLIUM HUSK 100% 6 GM PACKET PO SCH (08:33)
[2022-08-11 09:08] LABS: Calcium 8.8 mg/dL (8.4-10.2); Potassium 4.7 mmol/L (3.5-5.1)
[2022-08-11] MEDS: DEXTROSE 5% IN WATER 1,000 ML with SODIUM BICARB (1 MEQ/ML) 50 ML IV SCH (09:11)
--- NOTE | 2022-08-11 11:35 | P.PN ---
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 Patient has a history of hypertension, hyperlipidemia, and diabetes. Patient is admitted to the hospital secondary to Covid. Patient was also found to have atrial fibrillation and acute congestive heart failure. Patient examined this morning at the bedside. Patient denies chest pain or pressure. He reports mild shortness of breath. He remains on IV Lasix 20 mg daily. Patient's creatinine remained stable at 1.75. Telemetry reveals sinus mechanism in the 80s. Patient remains on IV heparin. Echocardiogram completed revealing EF 50-55%. 08/11/2022 Patient examined this morning at the bedside. Patient denies chest pain or pressure. He denies shortness of breath. Chest x-ray this morning is negative for an acute process. He remains on IV Lasix. Telemetry reveals sinus mechanism with heart rate in the 60s. He has been transitioned to oral anticoagulation. PHYSICAL EXAM: Thorough physical exam not completed secondary to limited evaluation/examination due to Covid19 ASSESSMENT: Covid 19 Abnormal troponins, likely secondary to combination of atrial fibrillation with RVR and Covid, no evidence of ACS New-onset paroxysmal atrial fibrillation, currently maintaining sinus mechanism Acute onset congestive heart failure with preserved LV function, 5055% Acute kidney injury Hypertension Hyperlipidemia Diabetes PLAN: Continue current cardiac medications Continue Eliquis 2.5mg BID secondary to patient's age and kidney function Case management consulted for Eliquis coverage Discontinue IV Lasix. Begin oral Lasix 20 mg daily Daily weights, accurate I&O, and monitoring of kidney function Further recommendations pending patient's course Nurse practitioner note has been reviewed by physician. Signing provider agrees with the documented findings, assessment, and plan of care. Objective - Vital Signs Vital signs: Vital Signs Temp 97.6 F 08/11/22 08:25 Pulse 72 08/11/22 08:25 Resp 15 08/11/22 08:25 BP 126/69 08/11/22 08:25 Pulse Ox 97 08/11/22 08:25 FiO2 Intake & Output 08/10/22 08/11/22 08/11/22 18:59 06:59 18:59 Intake Total 168 360 Output Total 1200 1125 Balance -1032 -1125 360 Weight 82.5 kg Intake: Intake, IV Titration 50 Amount Heparin Sod,Pork in 0.45% 50 NaCl 25,000 unit In 0.45 % NaCl 1 250ml.bag @ 12 UNITS/KG/HR 9.906 mls/hr IV .Q24H [facility] Rx#: [id number] Oral 118 360 Output: Urine 1200 1125 Other: Voiding Method Urinal Urinal Urinal External Catheter External Catheter - Labs CBC & Chem 7: 08/09/22 06:46 08/11/22 07:29 Labs: Abnormal Lab Results - Last 24 Hours (Table) 08/10/22 08/10/22 08/10/22 Range/Units 16:18 16:24 20:21 BUN (9-20) mg/dL Creatinine (0.66-1.25) mg/dL Glucose (74-99) mg/dL POC Glucose (mg/dL) 237 H 324 H (70-110) mg/dL Urine Protein Trace H (Negative) Urine Glucose (UA) 3+ H (Negative) Urine Blood Trace H (Negative) Urine Bacteria Occasional H (None) /hpf Urine Mucus Rare H (None) /hpf 08/11/22 08/11/22 Range/Units 06:20 07:29 BUN 40 H (9-20) mg/dL Creatinine 1.48 H (0.66-1.25) mg/dL Glucose 106 H (74-99) mg/dL POC Glucose (mg/dL) 131 H (70-110) mg/dL Urine Protein (Negative) Urine Glucose (UA) (Negative) Urine Blood (Negative) Urine Bacteria (None) /hpf Urine Mucus (None) /hpf
[2022-08-11 11:55] LABS: Glucose,Whole Blood 178 mg/dL (70-110)
--- NOTE | 2022-08-11 11:59 | P.PN ---
Subjective Progress Note Date: 08/11/22 This is a pleasant 82-year-old male patient with a known history of hypertension, hyperlipidemia, diabetes mellitus. He presented to the emergency room yesterday with a one-month history of upper respiratory symptoms. He states it started in his sinuses and then settled into his lungs. He's also had some issues with nausea. He's had some cough and congestion. Chest x-ray showed no acute pulmonary process. CT angiogram ruled out pulmonary embolism. There is some bilateral central edema reflecting fluid overload. White count 7.3. Hemoglobin 11.7. Platelets 129. Sodium 134. Potassium 4.7 and a curb 16. BUN 32. Creatinine 1.63. Glucose 283. Troponin 0.22, 0.25, 0.30. ProBNP 5630. Influenza screen negative. RSV screen negative. COVID-19 screen positive. He is seen today in consultation in the emergency department. He's currently sitting up in a stretcher. Awake and alert in no acute distress. He is maintaining good O2 saturations in the 90s on room air. He did receive IV diuretics and is feeling less short of breath today compared to yesterday. Echocardiogram revealed preserved left ventricular systolic function with ejection fraction 50-55%. He is currently on a heparin drip. Reevaluated today on 08/10/2022 patient is resting in bed, doing well, relatively asymptomatic, significantly improved compared to yesterday. Hardly any pulmonary symptoms, his O2 sats is 98% on room air. Patient remains afebrile with a temp of 98 1. Blood pressure 125/58 and heart rate is 80 electrolytes are normal renal profile showed BUN of 53 creatinine 1.75, hence will cut down on diuretics, patient was aggressively diuresed on presentation for presumptive acute diastolic congestive heart failure The patient is seen today 08/11/2022 in follow-up on the selective care unit. He is currently sitting up in a chair at the bedside. Awake and alert in no acute distress. Maintaining O2 saturations in the 90s on room air. Follow-up chest x-ray reveals no acute pulmonary process. Sodium 137. Potassium 4.7. Bicarb 24. BUN 40. Creatinine 1.48. Glucose 106. He is continued on anticoagulation for the Eliquis. Continued on vitamin supplements. D5W with 1 amp of bicarb at 50 MLS per hour. Objective - Vital Signs Vital signs: Vital Signs Temp 97.6 F 08/11/22 08:25 Pulse 72 08/11/22 08:25 Resp 15 08/11/22 08:25 BP 126/69 08/11/22 08:25 Pulse Ox 97 08/11/22 08:25 FiO2 Intake & Output 08/10/22 08/11/22 08/11/22 18:59 06:59 18:59 Intake Total 168 360 Output Total 1200 1125 Balance -1032 -1125 360 Weight 82.5 kg Intake: Intake, IV Titration 50 Amount Heparin Sod,Pork in 0.45% 50 NaCl 25,000 unit In 0.45 % NaCl 1 250ml.bag @ 12 UNITS/KG/HR 9.906 mls/hr IV .Q24H [facility] Rx#: [id number] Oral 118 360 Output: Urine 1200 1125 Other: Voiding Method Urinal Urinal Urinal External Catheter External Catheter - Exam GENERAL EXAM: Alert, 82-year-old male, on room air, comfortable in no apparent distress. HEAD: Normocephalic. EYES: Normal reaction of pupils, equal size. NOSE: Clear with pink turbinates. THROAT: No erythema or exudates. NECK: No masses, no JVD. CHEST: No chest wall deformity. LUNGS: Equal air entry with no crackles, wheeze or rhonchi. CVS: S1 and S2 normal with no audible murmur, regular rhythm. ABDOMEN: No hepatosplenomegaly, normal bowel sounds, no guarding or rigidity. SPINE: No scoliosis or deformity SKIN: No rashes CENTRAL NERVOUS SYSTEM: No focal deficits, tone is normal in all 4 extremities. EXTREMITIES: There is no peripheral edema. No clubbing, no cyanosis. Peripheral pulses are intact. - Labs CBC & Chem 7: 08/09/22 06:46 08/11/22 07:29 Labs: Abnormal Lab Results - Last 24 Hours (Table) 08/10/22 08/10/22 08/10/22 Range/Units 16:18 16:24 20:21 BUN (9-20) mg/dL Creatinine (0.66-1.25) mg/dL Glucose (74-99) mg/dL POC Glucose (mg/dL) 237 H 324 H (70-110) mg/dL Urine Protein Trace H (Negative) Urine Glucose (UA) 3+ H (Negative) Urine Blood Trace H (Negative) Urine Bacteria Occasional H (None) /hpf Urine Mucus Rare H (None) /hpf 08/11/22 08/11/22 Range/Units 06:20 07:29 BUN 40 H (9-20) mg/dL Creatinine 1.48 H (0.66-1.25) mg/dL Glucose 106 H (74-99) mg/dL POC Glucose (mg/dL) 131 H (70-110) mg/dL Urine Protein (Negative) Urine Glucose (UA) (Negative) Urine Blood (Negative) Urine Bacteria (None) /hpf Urine Mucus (None) /hpf Assessment and Plan Assessment: Dyspnea with cough and congestion possibly related to fluid volume overload and diastolic congestive heart failure. Responded well to Lasix Acute COVID-19 infection without acute COVID-19 pneumonia. Episode of atrial fibrillation with rapid ventricular response, anticoagulated with Eliquis Troponin leak History of renal disease with acute on chronic renal failure History of hypertension Hyperlipidemia Diabetes mellitus, type II Plan: The patient was seen and evaluated Chest x-ray, labs and medications reviewed Stable and on room air Cleared for discharge from the pulmonary standpoint I have personally seen and examined the patient, performed the documentation and the assessment and plan as written. Number of minutes spent on the visit: 10.
[2022-08-11 16:46] LABS: Glucose,Whole Blood 248 mg/dL (70-110)
--- NOTE | 2022-08-11 17:00 | P.PN ---
Progress Note - Text Progress Note Date: 08/11/22 Chief Complaint: Tired This is a pleasant 82-year-old patient who follows with Dr. Blank. Chronic stable medical conditions include diabetes, hypertension, hypercholesterolemia, Patient presented with feeling weak some shortness of breath slight cough going on for about a week. Especially with activity. Also had some mid central chest pressure. No radiation. No prior history of any cardiac disease. Some nausea. Decreased appetite. Patient has some diarrhea yesterday. No blood in the stool. Tired. No sputum production. Patient in the ER initially was found to be in atrial fibrillation. Put on IV heparin, IV amiodarone. Then switch to oral amiodarone. Admitted with paroxysmal atrial fibrillation, troponin positive, acute COVID-19 with no hypoxia, August 10: Looking more restful today. Diarrhea resolved. Changed to IV Lasix 20 mg per cardiology. Tolerating diet. Breathing stable. Appetite better. Put on bicarbonate drip at 50 mL an hour. Also started on eliquis. IV heparin discontinued. Patient had been changed over to by mouth amiodarone. August 11: Up in a chair. Tired. 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 Cleared by pulmonary and cardiology.. Stop bicarbonate drip. Bicarbonate corrected. Question just taper the nights he can see how he does with walking. No diarrhea. Oral intake much better. Active Medications Acetaminophen (Acetaminophen Tab 325 Mg Tab) 650 mg PO Q6HR PRN PRN Reason: Mild Pain or Fever > 100.5 Amiodarone HCl (Amiodarone 200 Mg Tab) 200 mg PO BID [facility] Last Admin: 08/11/22 08:26 Dose: 200 mg Apixaban (Apixaban 2.5 Mg Tablet) 2.5 mg PO BID [facility]; Protocol Last Admin: 08/11/22 08:26 Dose: 2.5 mg Atorvastatin Calcium (Atorvastatin 10 Mg Tab) 10 mg PO [facility] Last Admin: 08/10/22 20:54 Dose: 10 mg Cholecalciferol (Cholecalciferol 25 Mcg (1000 Iu) Tablet) 50 mcg PO [facility] Last Admin: 08/10/22 20:54 Dose: 50 mcg Dextrose/Water (Dextrose 50% Syringe 50 Ml) 25 ml IVP PER PROTOCOL PRN; Protocol PRN Reason: Hypoglycemia Dextrose/Water (Dextrose 50% Syringe 50 Ml) 50 ml IVP PER PROTOCOL PRN; Protocol PRN Reason: Hypoglycemia Furosemide (Furosemide 20 Mg Tab) 20 mg PO DAILY [facility] Glimepiride (Glimepiride 1 Mg Tab) 1 mg PO AC-BRKFST [facility] Last Admin: 08/11/22 06:47 Dose: 1 mg Insulin Aspart (Insulin Aspart (Novolog) 100 Unit/Ml Vial) 0 unit SQ ACHS [facility]; Protocol Last Admin: 08/11/22 12:19 Dose: 2 unit Insulin Detemir (Insulin Detemir (Levemir) 100 Unit/Ml Syr) 10 unit SQ HS [facility] Last Admin: 08/10/22 20:54 Dose: 10 unit Latanoprost (Latanoprost 0.005% Ophth Drops 2.5 Ml Btl) 1 drops BOTH EYES [facility] Last Admin: 08/10/22 22:27 Dose: Not Given Linagliptin (Linagliptin 5 Mg Tablet) 5 mg PO DAILY [facility] Last Admin: 08/11/22 08:26 Dose: 5 mg Metoprolol Tartrate (Metoprolol Tartrate 25 Mg Tab) 25 mg PO BID [facility] Last Admin: 08/11/22 08:26 Dose: 25 mg Naloxone HCl (Naloxone 0.4 Mg/Ml 1 Ml Vial) 0.2 mg IV Q2M PRN PRN Reason: Opioid Reversal Psyllium Hydrophilic Mucilloid (Psyllium Husk 100% 6 Gm Packet) 6 gm PO BID [facility] Last Admin: 08/11/22 08:33 Dose: Not Given Past medical history to include: Diabetes, hypertension, hypercholesterolemia Social history: . No smoking. No alcohol. Retired. Physical examination: VITAL SIGNS: 97.6, 76, 16, 1 38 x 65, 99% room air GENERAL: [BMI 29.4,, up in a chair, tired EYES: Pupils equal. Conjunctiva normal. HEENT: External appearance of nose and ears normal, oral cavity grossly normal. NECK: JVD not raised; masses not palpable. HEART: First and second heart sounds are normal; no edema. LUNGS: Respiratory rate normal; clear to auscultation. ABDOMEN: Soft, nontender, liver spleen not palpable, no masses palpable. PSYCH: Alert and oriented x3; mood and affect normal. MUSCULOSKELETAL:No Clubbing/cyanosis;muscles-grossly intact. OA INVESTIGATIONS, reviewed in the clinical context: August 11: Potassium 4.7 BUN 40 creatinine 1.48 UA: Protein trace. Procalcitonin 1.17 Ultrasound kidney.: Cyst found. No hydronephrosis. August 10 dose: Sodium 135 potassium 4.3 BUN 53 creatinine 1.75 albumin 2.8 2-D echocardiogram: EF 50-55% White count 13 hemoglobin 12.4 sodium 1:30 potassium 4.2 BUN 25 creatinine 1.68 blood glucose 190 Troponin I 0.2-0, 0.254, 0.302 COVID-19: PCR: Detected EKG tracing personally reviewed by me-sinus tachycardia. Right bundle-branch block Chest CTA: No PE. Questionable central prominence Chest x-ray film personally reviewed by me-some pulmonary artery prominence Assessment and plan: -Acute COVID-19 with no hypoxia.: Better Supportive care -Acute diarrhea secondary to COVID-19.: Resolved Supportive care. Metamucil. - CK D STAGE III. Likely nephrosclerosis UA showing trace protein. Renal ultrasound-unremarkable -Essential hypertension Amlodipine 5 mg. stop lisinopril -Diabetes mellitus type 2, oral hypoglycemic, uncontrolled with hyperglycemia Follow Accu-Cheks. 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 Telemetry. Follow with cardiology -Metabolic acidosis secondary to kidney failure: Better Bicarbonate drip discontinued. -Paroxysmal atrial fibrillation, now in sinus rhythm eliquis. Amiodarone 200 mg twice a day -IV heparin monitoring, follow PTT-discontinued -Full code Changed over to by mouth Lasix. Cutback on Metamucil. Discussed with patient. Will be discharged tomorrow.
[2022-08-11 20:17] LABS: Glucose,Whole Blood 300 mg/dL (70-110)
[2022-08-11] MEDS: CHOLECALCIFEROL 25 MCG (1000 IU) TABLET PO SCH (20:47)
[2022-08-11] MEDS: INSULIN DETEMIR (LEVEMIR) 100 UNIT/ML SYR SQ SCH (20:47)
[2022-08-11] MEDS: LATANOPROST 0.005% OPHTH DROPS 2.5 ML BTL BOTH EYES SCH (20:47)
[2022-08-11] MEDS: ATORVASTATIN 10 MG TAB PO SCH (20:47)
[2022-08-12] MEDS: INSULIN ASPART (NovoLOG) 100 UNIT/ML VIAL SQ SCH ×2 (06:19→12:01)
[2022-08-12 06:20] LABS: Glucose,Whole Blood 126 mg/dL (70-110)
[2022-08-12] MEDS: GLIMEPIRIDE 1 MG TAB PO SCH (06:34)
[2022-08-12 07:14] LABS: Calcium 8.6 mg/dL (8.4-10.2); Potassium 4.3 mmol/L (3.5-5.1)
[2022-08-12] MEDS: LINAGLIPTIN 5 MG TABLET PO SCH (08:58)
[2022-08-12] MEDS: AMIODARONE 200 MG TAB PO SCH (08:58)
[2022-08-12] MEDS: APIXABAN 2.5 MG TABLET PO SCH (08:58)
[2022-08-12] MEDS: METOPROLOL TARTRATE 25 MG TAB PO SCH (08:58)
[2022-08-12] MEDS ORDERED: PSYLLIUM HUSK 100% 6 GM PACKET PO SCH (09:00)
[2022-08-12] MEDS ORDERED: FUROSEMIDE 20 MG TAB PO SCH (09:00)
[2022-08-12] MEDS ORDERED: METOPROLOL TARTRATE 25 MG TAB PO STA (10:26)
--- NOTE | 2022-08-12 11:15 | P.PN ---
Subjective Progress Note Date: 08/12/22 Principal diagnosis: Coronavirus infection. Atrial fibrillation. This is a pleasant 82-year-old male patient with a known history of hypertension, hyperlipidemia, diabetes mellitus. He presented to the emergency room yesterday with a one-month history of upper respiratory symptoms. He states it started in his sinuses and then settled into his lungs. He's also had some issues with nausea. He's had some cough and congestion. Chest x-ray showed no acute pulmonary process. CT angiogram ruled out pulmonary embolism. There is some bilateral central edema reflecting fluid overload. White count 7.3. Hemoglobin 11.7. Platelets 129. Sodium 134. Potassium 4.7 and a curb 16. BUN 32. Creatinine 1.63. Glucose 283. Troponin 0.22, 0.25, 0.30. ProBNP 5630. Influenza screen negative. RSV screen negative. COVID-19 screen positive. He is seen today in consultation in the emergency department. He's currently sitting up in a stretcher. Awake and alert in no acute distress. He is maintaining good O2 saturations in the 90s on room air. He did receive IV diuretics and is feeling less short of breath today compared to yesterday. Echocardiogram revealed preserved left ventricular systolic function with ejection fraction 50-55%. He is currently on a heparin drip. Reevaluated today on 08/10/2022 patient is resting in bed, doing well, relatively asymptomatic, significantly improved compared to yesterday. Hardly any pulmonary symptoms, his O2 sats is 98% on room air. Patient remains afebrile with a temp of 98 1. Blood pressure 125/58 and heart rate is 80 electrolytes are normal renal profile showed BUN of 53 creatinine 1.75, hence will cut down on diuretics, patient was aggressively diuresed on presentation for presumptive acute diastolic congestive heart failure The patient is seen today 08/11/2022 in follow-up on the selective care unit. He is currently sitting up in a chair at the bedside. Awake and alert in no acute distress. Maintaining O2 saturations in the 90s on room air. Follow-up chest x-ray reveals no acute pulmonary process. Sodium 137. Potassium 4.7. Bicarb 24. BUN 40. Creatinine 1.48. Glucose 106. He is continued on anticoagulation for the Eliquis. Continued on vitamin supplements. D5W with 1 amp of bicarb at 50 MLS per hour. Progress note dated 08/12/2022. Patient is seen today in room 377. He is resting comfortably in bed. He's not receiving any IV fluids. He is on room air. The patient states that he was going to be discharged yesterday, but for some reason, he was not discharged. Clinically he looks well. Laboratory data includes a sodium 136, potassium 4.3, chlorides 104, CO2 24, anion gap 8, BUN 31, creatinine 1.43. Objective - Vital Signs Vital signs: Vital Signs Temp 97.7 F 08/12/22 08:00 Pulse 90 08/12/22 08:00 Resp 18 08/12/22 08:00 BP 130/72 08/12/22 08:00 Pulse Ox 99 08/12/22 08:00 FiO2 Intake & Output 08/11/22 08/12/22 08/12/22 18:59 06:59 18:59 Intake Total 660 20 358 Output Total 2150 900 1 Balance -1490 -880 357 Weight 82 kg Intake: IV 20 Invasive Line 1 10 Invasive Line 2 10 Oral 660 358 Output: Urine 2150 900 1 Other: Voiding Method Urinal Bedside Commode Bedside Commode External Catheter Urinal Urinal # Voids 1 # Bowel Movements 1 1 1 - Exam No acute distress, oriented 3. No respiratory distress. Currently on room air. HEENT examination is grossly unremarkable. Neck supple. Full range of motion. No adenopathy thyromegaly or neck vein distention. Cardiovascular examination reveals regular rhythm rate. S1-S2 normal. No S3 or S4. No discernible murmur noted. Heart rate 90 bpm. Lungs reveal clear breath sounds. Breath sounds are equal bilaterally. No adventitious lung sounds including wheezes rhonchi or crackles. Saturations on room air are 99%. Abdomen soft bowel sounds are heard. No masses or tenderness. Extremities are intact. No cyanosis clubbing or edema. Skin is without rash or lesion. Neurologic examination is brief but nonfocal. - Labs CBC & Chem 7: 08/09/22 06:46 08/12/22 06:15 Labs: Abnormal Lab Results - Last 24 Hours (Table) 08/11/22 08/11/22 08/11/22 Range/Units 11:51 16:43 20:15 Sodium (137-145) mmol/L BUN (9-20) mg/dL Creatinine (0.66-1.25) mg/dL Glucose (74-99) mg/dL POC Glucose (mg/dL) 178 H 248 H 300 H (70-110) mg/dL 08/12/22 08/12/22 Range/Units 06:15 06:18 Sodium 136 L (137-145) mmol/L BUN 31 H (9-20) mg/dL Creatinine 1.43 H (0.66-1.25) mg/dL Glucose 114 H (74-99) mg/dL POC Glucose (mg/dL) 126 H (70-110) mg/dL Assessment and Plan Assessment: Dyspnea with cough and congestion possibly related to fluid volume overload and diastolic congestive heart failure. Acute COVID-19 infection without acute COVID-19 pneumonia. Episode of atrial fibrillation with rapid ventricular response, anticoagulated with Eliquis. Troponin leak. History of renal disease with acute on chronic renal failure. History of hypertension. Hyperlipidemia. Diabetes mellitus, type II. Plan: Progress note dated 08/12/2022. The patient appears to be very stable. He's currently not receiving any IV fluids, or supplemental oxygen. The patient states that he may be discharged home today. We will leave that up to the primary service. Labs, x-rays, and medications are reviewed. We will continue to follow make recommendations along the way. Prognosis is guarded. Time with Patient: Less than 30
--- NOTE | 2022-08-12 11:46 | P.PN ---
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 Patient has a history of hypertension, hyperlipidemia, and diabetes. Patient is admitted to the hospital secondary to Covid. Patient was also found to have atrial fibrillation and acute congestive heart failure. Patient examined this morning at the bedside. Patient denies chest pain or pressure. He reports mild shortness of breath. He remains on IV Lasix 20 mg daily. Patient's creatinine remained stable at 1.75. Telemetry reveals sinus mechanism in the 80s. Patient remains on IV heparin. Echocardiogram completed revealing EF 50-55%. 08/11/2022 Patient examined this morning at the bedside. Patient denies chest pain or pressure. He denies shortness of breath. Chest x-ray this morning is negative for an acute process. He remains on IV Lasix. Telemetry reveals sinus mechanism with heart rate in the 60s. He has been transitioned to oral anticoagulation. 08/12 the patient is working with PT and OT within his room today due to Covid isolation. heart rate is running in the 90s, blood pressure 130/72.repeat blood work reveals potassium of 4.3, BUN 31 creatinine 1.43. PHYSICAL EXAM: Thorough physical exam not completed secondary to limited evaluation/examination due to Covid19 ASSESSMENT: Covid 19 Abnormal troponins, likely secondary to combination of atrial fibrillation with RVR and Covid, no evidence of ACS New-onset paroxysmal atrial fibrillation, currently maintaining sinus mechanism Acute onset congestive heart failure with preserved LV function, 5055% Acute kidney injury Hypertension Hyperlipidemia Diabetes PLAN: Continue current cardiac medicationsincluding oral Lasix, increase metoprolol to 50 mg twice daily Continue Eliquis 2.5mg BID secondary to patient's age and kidney function Patient is cleared for discharge from cardiology on current medications. He may follow-up with Dr. Osorio in 2 weeks. Cardiology will follow on an as-needed basis Nurse practitioner note has been reviewed by physician. Signing provider agrees with the documented findings, assessment, and plan of care. Objective - Vital Signs Vital signs: Vital Signs Temp 97.7 F 08/12/22 08:00 Pulse 90 08/12/22 08:00 Resp 18 08/12/22 08:00 BP 130/72 08/12/22 08:00 Pulse Ox 99 08/12/22 08:00 FiO2 Intake & Output 08/11/22 08/12/22 08/12/22 18:59 06:59 18:59 Intake Total 660 20 358 Output Total 2150 900 1 Balance -1490 -880 357 Weight 82 kg Intake: IV 20 Invasive Line 1 10 Invasive Line 2 10 Oral 660 358 Output: Urine 2150 900 1 Other: Voiding Method Urinal Bedside Commode Bedside Commode External Catheter Urinal Urinal # Voids 1 # Bowel Movements 1 1 1 - Labs CBC & Chem 7: 08/09/22 06:46 08/12/22 06:15 Labs: Abnormal Lab Results - Last 24 Hours (Table) 08/11/22 08/11/22 08/11/22 Range/Units 11:51 16:43 20:15 Sodium (137-145) mmol/L BUN (9-20) mg/dL Creatinine (0.66-1.25) mg/dL Glucose (74-99) mg/dL POC Glucose (mg/dL) 178 H 248 H 300 H (70-110) mg/dL 08/12/22 08/12/22 Range/Units 06:15 06:18 Sodium 136 L (137-145) mmol/L BUN 31 H (9-20) mg/dL Creatinine 1.43 H (0.66-1.25) mg/dL Glucose 114 H (74-99) mg/dL POC Glucose (mg/dL) 126 H (70-110) mg/dL
[2022-08-12 11:56] LABS: Glucose,Whole Blood 221 mg/dL (70-110)
[2022-08-12 12:35] VITALS: BP 144/75; PULSE 72; RESP 16; TEMP 98.1
[2022-08-12] MEDS ORDERED: METOPROLOL TARTRATE 50 MG TAB PO SCH (21:00)
--- NOTE | 2022-08-12 23:42 | P.DS ---
Providers Date of admission: 08/08/22 20:56 Expected date of discharge: 08/12/22 Attending physician: Theron Mendez Consults: 08/08/22 20:54 Consult Physician Urgent Consulting Provider: [facility] Consult Reason/Comments: new onset afib Do you want consulting provider notified?: Yes Consult Physician Urgent Consulting Provider: Rodrigue Xiao Reason/Comments: covid 19 Do you want consulting provider notified?: Yes [facility] care physician: [facility] Course: Chief Complaint: Tired This is a pleasant 82-year-old patient who follows with Dr. Blank. Chronic stable medical conditions include diabetes, hypertension, hypercholesterolemia, Patient presented with feeling weak some shortness of breath slight cough going on for about a week. Especially with activity. Also had some mid central chest pressure. No radiation. No prior history of any cardiac disease. Some nausea. Decreased appetite. Patient has some diarrhea yesterday. No blood in the stool. Tired. No sputum production. Patient in the ER initially was found to be in atrial fibrillation. Put on IV heparin, IV amiodarone. Then switch to oral amiodarone. Admitted with paroxysmal atrial fibrillation, troponin positive, acute COVID-19 with no hypoxia, August 10: Looking more restful today. Diarrhea resolved. Changed to IV Lasix 20 mg per cardiology. Tolerating diet. Breathing stable. Appetite better. Put on bicarbonate drip at 50 mL an hour. Also started on eliquis. IV heparin discontinued. Patient had been changed over to by mouth amiodarone. August 11: Up in a chair. Tired. 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 Cleared by pulmonary and cardiology.. Stop bicarbonate drip. Bicarbonate corrected. Question just taper the nights he can see how he does with walking. No diarrhea. Oral intake much better. August 12: Patient doing much better. Walking better. Oral intake fair. Discussed with the patient. No diarrhea. Stable for discharge. Follow with Dr. Rosamaria Li Discussion and discharge planning more than 35 minutes Past medical history to include: Diabetes, hypertension, hypercholesterolemia Social history: . No smoking. No alcohol. Retired. Physical examination: VITAL SIGNS: 98.1, 72, 16, 144/75, 96% room air GENERAL: [BMI 29.4,, up in a chair, tired EYES: Pupils equal. Conjunctiva normal. HEENT: External appearance of nose and ears normal, oral cavity grossly normal. NECK: JVD not raised; masses not palpable. HEART: First and second heart sounds are normal; no edema. LUNGS: Respiratory rate normal; clear to auscultation. ABDOMEN: Soft, nontender, liver spleen not palpable, no masses palpable. PSYCH: Alert and oriented x3; mood and affect normal. MUSCULOSKELETAL:No Clubbing/cyanosis;muscles-grossly intact. OA INVESTIGATIONS, reviewed in the clinical context: August 12: Potassium 4.3 BUN 31 creatine 1.43 August 11: Potassium 4.7 BUN 40 creatinine 1.48 UA: Protein trace. Procalcitonin 1.17 Ultrasound kidney.: Cyst found. No hydronephrosis. August 10 dose: Sodium 135 potassium 4.3 BUN 53 creatinine 1.75 albumin 2.8 2-D echocardiogram: EF 50-55% White count 13 hemoglobin 12.4 sodium 1:30 potassium 4.2 BUN 25 creatinine 1.68 blood glucose 190 Troponin I 0.2-0, 0.254, 0.302 COVID-19: PCR: Detected EKG tracing personally reviewed by me-sinus tachycardia. Right bundle-branch block Chest CTA: No PE. Questionable central prominence Chest x-ray film personally reviewed by me-some pulmonary artery prominence Assessment and plan: -Acute COVID-19 with no hypoxia.: Better Supportive care -Acute diarrhea secondary to COVID-19.: Resolved Supportive care. Metamucil. - CK D STAGE III. Likely nephrosclerosis UA showing trace protein. Renal ultrasound-unremarkable -Essential hypertension Amlodipine 5 mg. stop lisinopril -Diabetes mellitus type 2, oral hypoglycemic, uncontrolled with hyperglycemia Follow Accu-Cheks. 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 Telemetry. Follow with cardiology -Metabolic acidosis secondary to kidney failure: Better Bicarbonate drip discontinued. -Paroxysmal atrial fibrillation, now in sinus rhythm eliquis. Amiodarone 200 mg a day -IV heparin monitoring, follow PTT-discontinued -Full code Disposition: Home Plan - Discharge Summary New Discharge Prescriptions: New Atorvastatin [Lipitor] 10 mg PO HS tab Metoprolol Tartrate [Lopressor] 50 mg PO BID #60 tab Psyllium Husk 100% [Metamucil Packet] 6 gm PO DAILY packet Apixaban [Eliquis] 2.5 mg PO BID #60 tab Amiodarone [Cordarone] 200 mg PO DAILY #30 tab Continue Cholecalciferol [Vitamin D3 (25 Mcg = 1000 Iu)] 50 mcg PO HS Latanoprost/Pf [Latanoprost 0.005% Eye Drop] 1 drop BOTH EYES HS Linagliptin [Tradjenta] 5 mg PO DAILY lisinopriL [Zestril] 10 mg PO DAILY Glimepiride [Amaryl] 1 mg PO DAILY Discontinued amLODIPine [Norvasc] 5 mg PO HS Aspirin EC [Ecotrin Low Dose] 81 mg PO HS Simvastatin [Zocor] 20 mg PO HS Discharge Medication List Cholecalciferol [Vitamin D3 (25 Mcg = 1000 Iu)] 50 mcg PO HS 08/08/22 [History] Glimepiride [Amaryl] 1 mg PO DAILY 08/08/22 [History] Latanoprost/Pf [Latanoprost 0.005% Eye Drop] 1 drop BOTH EYES HS 08/08/22 [History] Linagliptin [Tradjenta] 5 mg PO DAILY 08/08/22 [History] lisinopriL [Zestril] 10 mg PO DAILY 08/08/22 [History] Apixaban [Eliquis] 2.5 mg PO BID #60 tab 08/10/22 [Rx] Amiodarone [Cordarone] 200 mg PO DAILY #30 tab 08/12/22 [Rx] Atorvastatin [Lipitor] 10 mg PO HS tab 08/12/22 [Rx] Metoprolol Tartrate [Lopressor] 50 mg PO BID #60 tab 08/12/22 [Rx] Psyllium Husk 100% [Metamucil Packet] 6 gm PO DAILY packet 08/12/22 [Rx] Follow up Appointment(s)/Referral(s): Addison Blank DO [Primary Care Provider] - 08/16/22 2:20 pm Tulio Osorio MD [STAFF PHYSICIAN] - 1 Week (Office to call you with date and time.) Patient Instructions/Handouts: A-fib (Atrial Fibrillation) (DC), COVID-19 (Coronavirus Disease 2019) (DC) Discharge Disposition: HOME SELF-CARE
== END 2022-08-12 15:18 | disposition home or self-care (01) | DRG 177 ==
LOC: EC 16:28 → 3SCARD 20:56
PROVIDERS: ADMIT Hospitalist; ATTEND Hospitalist
DX: U07.1 COVID-19 (principal); I50.31 Acute diastolic (congestive) heart failure; A08.39 Other viral enteritis; I13.0 Hypertensive heart and chronic kidney disease with heart failure and stage 1 through stage 4 chronic kidney disease, or unspecified chronic kidney disease; N17.9 Acute kidney failure, unspecified; E87.20 Acidosis, unspecified; B97.29 Other coronavirus as the cause of diseases classified elsewhere; R77.8 Other specified abnormalities of plasma proteins; E78.00 Pure hypercholesterolemia, unspecified; I49.3 Ventricular premature depolarization; E11.22 Type 2 diabetes mellitus with diabetic chronic kidney disease; I25.10 Atherosclerotic heart disease of native coronary artery without angina pectoris; I45.10 Unspecified right bundle-branch block; I48.0 Paroxysmal atrial fibrillation; N18.30 Chronic kidney disease, stage 3 unspecified; Z78.9 Other specified health status; Z79.01 Long term (current) use of anticoagulants; Z79.4 Long term (current) use of insulin; Z79.84 Long term (current) use of oral hypoglycemic drugs; Z79.899 Other long term (current) drug therapy; Z88.0 Allergy status to penicillin; Z82.49 Family history of ischemic heart disease and other diseases of the circulatory system; Z79.82 Long term (current) use of aspirin; Z87.01 Personal history of pneumonia (recurrent)
CPT/HCPCS: 36415; 71045; 71046; 71275; 76770; 80048; 80053; 81001; 83605; 83735; 83880; 84145; 84443; 84484; 85025; 85379; 85610; 85730; 87636; 93005; 93306; 96361; 96365; 96366; 96375; 99291

== ENCOUNTER 2022-09-09 14:56 | Inpatient (IN) | payer MEDICARE ==
[2022-09-09 15:36] LABS: Glucose,Whole Blood 196 mg/dL (70-110)
--- NOTE | 2022-09-09 15:54 | ED ---
General Adult HPI - General Chief complaint: Altered Mental Status Stated complaint: AMS Time Seen by Provider: 09/09/22 15:12 Source: patient, EMS, RN notes reviewed, old records reviewed Mode of arrival: EMS Limitations: altered mental status - History of Present Illness Initial comments: 82-year-old male presenting for evaluation of worsening confusion. History is obtained from the patient although it is quite limited. No family available at initial evaluation. Patient states he is here because he had Covid and has not been doing well since. He denies pain complaints. Denies fever. No reported vomiting. - Related Data Home Medications Medication Instructions Recorded Confirmed Cholecalciferol [Vitamin D3 (25 50 mcg PO HS 08/08/22 09/09/22 Mcg = 1000 Iu)] Glimepiride [Amaryl] 2 mg PO DAILY 08/08/22 09/09/22 Latanoprost/Pf [Latanoprost 0.005% 1 drop BOTH EYES HS 08/08/22 09/09/22 Eye Drop] Linagliptin [Tradjenta] 5 mg PO DAILY 08/08/22 09/09/22 lisinopriL [Zestril] 10 mg PO DAILY 08/08/22 09/09/22 Previous Rx's Medication Instructions Recorded Apixaban [Eliquis] 2.5 mg PO BID #60 tab 08/10/22 Amiodarone [Cordarone] 200 mg PO DAILY #30 tab 08/12/22 Metoprolol Tartrate [Lopressor] 50 mg PO BID #60 tab 08/12/22 Atorvastatin [Lipitor] 10 mg PO HS #30 tab 08/13/22 Allergies Allergy/AdvReac Type Severity Reaction Status Date / Time Penicillins Allergy Unknown Verified 09/09/22 15:57 Childhood Review of Systems ROS Statement: Those systems with pertinent positive or pertinent negative responses have been documented in the HPI. ROS Other: All systems not noted in ROS Statement are negative. Past Medical History Past Medical History: Atrial Fibrillation, Diabetes Mellitus, Hypertension, Renal Disease Additional Past Medical History / Comment(s): PNEUMONIA, HIGH CHOLESTROL History of Any Multi-Drug Resistant Organisms: None Reported Past Surgical History: No Surgical Hx Reported Past Psychological History: No Psychological Hx Reported Smoking Status: Never smoker Past Alcohol Use History: None Reported Past Drug Use History: None Reported General Exam Limitations: altered mental status General appearance: alert, in no apparent distress Head exam: Present: atraumatic, normocephalic Eye exam: Present: normal appearance, PERRL ENT exam: Present: mucous membranes dry Neck exam: Present: normal inspection. Absent: tenderness, meningismus Respiratory exam: Present: normal lung sounds bilaterally. Absent: respiratory distress, wheezes Cardiovascular Exam: Present: regular rate, normal rhythm GI/Abdominal exam: Present: soft. Absent: distended, tenderness, guarding Neurological exam: Present: alert, CN II-XII intact. Absent: oriented X3, motor sensory deficit Psychiatric exam: Present: normal affect, normal mood Skin exam: Present: warm, dry, intact Course Vital Signs 09/09/22 09/09/22 15:03 16:30 Temperature 97.3 F L Pulse Rate 82 75 Respiratory 20 16 Rate Blood Pressure 138/76 121/63 O2 Sat by Pulse 96 95 Oximetry - Reevaluation(s) Reevaluation #1: 09/09/22 18:23 Patient's who is at bedside indicates that the patient has had worsening mental status changes since the time of discharge for recent Covid admission. Proximally over the past 3 weeks EKG Findings - EKG Comments: EKG Findings:: EKG: Sinus rhythm, right bundle-branch block, rate of 76, AK interval 190, QRS duration 155, QTC [address] segment elevation Medical Decision Making - Medical Decision Making Was pt. sent in by a medical professional or institution (Dr. PA, CUSTODIAL OFFICER, urgent care, hospital, or penitentiary...) When possible be specific @ -No Did you speak to anyone other than the patient for history (EMS, parent, family, police, friend...)? What history was obtained from this source @Patient's Did you review nursing and triage notes (agree or disagree)? Why? @ -I reviewed and agree with nursing and triage notes Were old charts reviewed (outside hosp., previous admission, EMS record, old EKG, old radiological studies, urgent care reports/EKG's, penitentiary records)? Report findings @ -No old charts were reviewed Differential Diagnosis (chest pain, altered mental status, abdominal pain women, abdominal pain men, vaginal bleeding, weakness, fever, dyspnea, syncope, headache, dizziness, GI bleed, back pain, seizure, CVA, palpatations, mental health, musculoskeletal)? @ Differential Altered Mental Status: Hypoglycemia, DKA, hypercapnia, ETOH, overdose, CO poisoning, trauma, myxedema coma, HTN encephalopathy, infection, encephalitis, psychosis, intercranial hemorrhage, hepatic encephalopathy, meningitis, CVA, this is not meant to be an all-inclusive list EKG interpreted by me (3pts min.). @ -As above X-rays interpreted by me (1pt min.). @ -Chest x-ray negative for acute cardiopulmonary findings CT interpreted by me (1pt min.). @CT showed chronic changes without acute abnormality U/S interpreted by me (1pt. min.). @ -None done What testing was considered but not performed or refused? (CT, X-rays, U/S, labs)? Why? @ -None What meds were considered but not given or refused? Why? @ -None Did you discuss the management of the patient with other professionals (professionals i.e. , PA, CUSTODIAL OFFICER, lab, RT, psych nurse, director social service, siding mechanic, teacher, weapons electrical engineering officer, registered nurse hh case manager)? Give summary @ [facility], covering for Dr. Mendez Was smoking cessation discussed for >3mins.? @ -No Was critical care preformed (if so, how long)? @ -No Were there social determinants of health that impacted care today? How? (Homelessness, low income, unemployed, alcoholism, drug addiction, transportation, low edu. Level, literacy, decrease access to med. care, care home, rehab)? @ -No Was there de-escalation of care discussed even if they declined (Discuss DNR or withdrawal of care, Hospice)? DNR status @ -No What co-morbidities impacted this encounter? (DM, HTN, Smoking, COPD, CAD, Cancer, CVA, ARF, Chemo, Hep., AIDS, mental health diagnosis, sleep apnea, morbid obesity)? @ -Hypertension, chronic kidney disease Was patient admitted / discharged? Hospital course, mention meds given and route, prescriptions, significant lab abnormalities, going to OR and other pertinent info. @-Concerned about this patient's home situation and whether or not he can continue to be home with his . He's had increased confusion and his had increased difficulties with activities of daily living. His workup in the emergency Department is essentially unremarkable for acute changes from prior and nothing to explain his worsening mental status. He will be admitted, may require placement. Undiagnosed new problem with uncertain prognosis? @ -No Drug Therapy requiring intensive monitoring for toxicity (Heparin, Nitro, Insulin, Cardizem)? @ -No Were any procedures done? @ -No Diagnosis/symptom? @Altered mental status Acute, or Chronic, or Acute on Chronic? @ -Acute - Lab Data Result diagrams: 09/09/22 16:39 09/09/22 16:39 Lab Results 09/09/22 09/09/22 09/09/22 Range/Units 15:34 15:41 16:39 WBC 4.5 (3.8-10.6) k/uL RBC 3.75 L (4.30-5.90) m/uL Hgb 11.1 L (13.0-17.5) gm/dL Hct 33.3 L (39.0-53.0) % MCV 88.7 (80.0-100.0) fL MCH 29.5 (25.0-35.0) pg MCHC 33.2 (31.0-37.0) g/dL RDW 13.8 (11.5-15.5) % Plt Count 135 L (150-450) k/uL MPV 8.5 Neutrophils % 79 % Lymphocytes % 8 % Monocytes % 9 % Eosinophils % 2 % Basophils % 0 % Neutrophils # 3.5 (1.3-7.7) k/uL Lymphocytes # 0.4 L (1.0-4.8) k/uL Monocytes # 0.4 (0-1.0) k/uL Eosinophils # 0.1 (0-0.7) k/uL Basophils # 0.0 (0-0.2) k/uL PT 11.3 (9.0-12.0) sec INR 1.1 (<1.2) APTT 21.1 L (22.0-30.0) sec Sodium (137-145) mmol/L Potassium (3.5-5.1) mmol/L Chloride (98-107) mmol/L Carbon Dioxide (22-30) mmol/L Anion Gap mmol/L BUN (9-20) mg/dL Creatinine (0.66-1.25) mg/dL Est GFR (CKD-EPI)AfAm (>60 ml/min/1.73 sqM) Est GFR (CKD-EPI)NonAf (>60 ml/min/1.73 sqM) Glucose (74-99) mg/dL POC Glucose (mg/dL) 196 H (70-110) mg/dL POC Glu Bar Host/Hostess Jhonny Chang Calcium (8.4-10.2) mg/dL Total Bilirubin (0.2-1.3) mg/dL AST (17-59) U/L ALT (4-49) U/L Alkaline Phosphatase (38-126) U/L Troponin I (0.000-0.034) ng/mL Total Protein (6.3-8.2) g/dL Albumin (3.5-5.0) g/dL Urine Color Urine Appearance (Clear) Urine pH (5.0-8.0) Ur Specific Liberty (1.001-1.035) Urine Protein (Negative) Urine Glucose (UA) (Negative) Urine Ketones (Negative) Urine Blood (Negative) Urine Nitrite (Negative) Urine Bilirubin (Negative) Urine Urobilinogen (<2.0) mg/dL Ur Leukocyte Esterase (Negative) Urine RBC (0-5) /hpf Urine WBC (0-5) /hpf Urine Mucus (None) /hpf 09/09/22 09/09/22 09/09/22 Range/Units 16:39 16:39 16:48 WBC (3.8-10.6) k/uL RBC (4.30-5.90) m/uL Hgb (13.0-17.5) gm/dL Hct (39.0-53.0) % MCV (80.0-100.0) fL MCH (25.0-35.0) pg MCHC (31.0-37.0) g/dL RDW (11.5-15.5) % Plt Count (150-450) k/uL MPV Neutrophils % % Lymphocytes % % Monocytes % % Eosinophils % % Basophils % % Neutrophils # (1.3-7.7) k/uL Lymphocytes # (1.0-4.8) k/uL Monocytes # (0-1.0) k/uL Eosinophils # (0-0.7) k/uL Basophils # (0-0.2) k/uL PT (9.0-12.0) sec INR (<1.2) APTT (22.0-30.0) sec Sodium 136 L (137-145) mmol/L Potassium 3.5 (3.5-5.1) mmol/L Chloride 100 (98-107) mmol/L Carbon Dioxide 27 (22-30) mmol/L Anion Gap 9 mmol/L BUN 27 H (9-20) mg/dL Creatinine 1.66 H (0.66-1.25) mg/dL Est GFR (CKD-EPI)AfAm 44 (>60 ml/min/1.73 sqM) Est GFR (CKD-EPI)NonAf 38 (>60 ml/min/1.73 sqM) Glucose 163 H (74-99) mg/dL POC Glucose (mg/dL) (70-110) mg/dL POC Glu Bar Host/Hostess ID Calcium 9.4 (8.4-10.2) mg/dL Total Bilirubin 0.5 (0.2-1.3) mg/dL AST 25 (17-59) U/L ALT 33 (4-49) U/L Alkaline Phosphatase 83 (38-126) U/L Troponin I <0.012 (0.000-0.034) ng/mL Total Protein 5.7 L (6.3-8.2) g/dL Albumin 3.1 L (3.5-5.0) g/dL Urine Color Yellow Urine Appearance Clear (Clear) Urine pH 5.5 (5.0-8.0) Ur Specific Liberty 1.017 (1.001-1.035) Urine Protein 1+ H (Negative) Urine Glucose (UA) 3+ H (Negative) Urine Ketones Negative (Negative) Urine Blood Trace H (Negative) Urine Nitrite Negative (Negative) Urine Bilirubin Negative (Negative) Urine Urobilinogen <2.0 (<2.0) mg/dL Ur Leukocyte Esterase Negative (Negative) Urine RBC 1 (0-5) /hpf Urine WBC 2 (0-5) /hpf Urine Mucus Rare H (None) /hpf Disposition Clinical Impression: Altered mental status Disposition: ADMITTED IP TO THIS HOSP Condition: Stable Is patient prescribed a controlled substance at d/c from ED?: No Referrals: Addison Blank DO [Primary Care Provider] - 1-2 days Time of Disposition: 18:25
[2022-09-09 16:15] LABS: INR 1.1 (<1.2); Prothrombin Time 11.3 sec (9.0-12.0)
--- NOTE | 2022-09-09 16:15 | XR ---
EXAMINATION TYPE: XR chest 2V DATE OF EXAM: 09/09/2022 COMPARISON: 08/11/2022 INDICATION: Acute mental status changes TECHNIQUE: Frontal and lateral views of the chest are obtained. FINDINGS: The heart size is normal. The pulmonary vasculature is normal. The lungs are clear. IMPRESSION: 1. No acute pulmonary process.
[2022-09-09 16:33] LABS: Partial Thromboplastin Time 21.1 sec (22.0-30.0)
--- NOTE | 2022-09-09 16:43 | CT ---
EXAMINATION TYPE: CT brain wo con DATE OF EXAM: 09/09/2022 COMPARISON: None HISTORY: 82-year-old male confusion, altered mental status, fall TECHNIQUE: Examination was done in axial plane without intravenous contrast. Coronal and sagittal r econstructions performed. CT DLP: 1078.4 mGycm Automated exposure control for dose reduction was used. FINDINGS: There is no evidence of acute intracranial hemorrhage, acute ischemic changes, mass, mass-effect, or extra-axial fluid collection. There is no effacement of cerebral sulci or basal subarachnoid cister ns. There is no hydrocephalus. There is no midline shift. Medrano-white matter distinction is preserv ed. Moderate generalized supratentorial volume loss. Dense dural dystrophic calcifications noted along th e falx. Mild patchy white matter hypodensities in posterior hemispheres. Prominent atherosclerotic ca lcifications within the carotid siphons. Regular nasal septal deviation. Mastoid air cells and paranasal sinuses well pneumatized. The globes are intact. IMPRESSION: Mild generalized atrophy and mild burden of chronic small vessel ischemic disease. No acute intracran ial abnormality seen.
[2022-09-09 17:10] LABS: Albumin 3.1 g/dL (3.5-5.0); Calcium 9.4 mg/dL (8.4-10.2); Potassium 3.5 mmol/L (3.5-5.1); Total Bilirubin 0.5 mg/dL (0.2-1.3); Total Protein 5.7 g/dL (6.3-8.2)
[2022-09-09 17:12] LABS: Appearance,Urine Clear (Clear); Bilirubin,Urine Negative (Negative); Blood,Urine Trace (Negative); Color,Urine Yellow; Glucose,Urine (UA) 3+ (Negative); Ketones,Urine Negative (Negative); Leukocyte Esterase,Urine Negative (Negative); Mucus,Urine Rare /hpf; Nitrite,Urine Negative (Negative); PH, Urine 5.5 (5.0-8.0); Protein,Urine 1+ (Negative); RBC,Urine 1 /hpf (0-5); Specific Gravity,Urine 1.017 (1.001-1.035); Urobilinogen,Urine <2.0 mg/dL (<2.0); WBC,Urine 2 /hpf (0-5)
[2022-09-09 17:21] LABS: Basophils % (A) 0 %; Eosinophils # (A) 0.1 k/uL (0-0.7); Eosinophils % (A) 2 %; HCT 33.3 % (39.0-53.0); HGB 11.1 gm/dL (13.0-17.5); Lymphocytes # (A) 0.4 k/uL (1.0-4.8); Lymphocytes % (A) 8 %; MCH 29.5 pg (25.0-35.0); MCHC 33.2 g/dL (31.0-37.0); MCV 88.7 fL (80.0-100.0); Mean Platelet Volume 8.5; Monocytes # (A) 0.4 k/uL (0-1.0); Monocytes % (A) 9 %; Neutrophils # (A) 3.5 k/uL (1.3-7.7); Neutrophils % (A) 79 %; Platelet Count 135 k/uL (150-450); RBC 3.75 m/uL (4.30-5.90); RDW 13.8 % (11.5-15.5); WBC 4.5 k/uL (3.8-10.6)
[2022-09-09] MEDS ORDERED: NALOXONE 0.4 MG/ML 1 ML VIAL IV PRN (18:21)
[2022-09-09] MEDS: SODIUM CHLORIDE 0.9% 1,000 ML IV SCH (18:55)
[2022-09-09] MEDS ORDERED: DEXTROSE 50% SYRINGE 50 ML IVP PRN ×2 (20:25)
[2022-09-09 20:37] LABS: Glucose,Whole Blood 159 mg/dL (70-110)
[2022-09-09] MEDS: APIXABAN 2.5 MG TABLET PO SCH (21:42)
[2022-09-09] MEDS: ATORVASTATIN 10 MG TAB PO SCH (21:43)
[2022-09-09] MEDS: CHOLECALCIFEROL 25 MCG (1000 IU) TABLET PO SCH (21:43)
[2022-09-09] MEDS: METOPROLOL TARTRATE 50 MG TAB PO SCH (21:44)
[2022-09-09] MEDS: INSULIN ASPART (NovoLOG) 100 UNIT/ML VIAL SQ SCH (21:45)
[2022-09-09] MEDS: LATANOPROST 0.005% OPHTH DROPS 2.5 ML BTL BOTH EYES SCH (21:46)
[2022-09-10] MEDS: ACETAMINOPHEN TAB 325 MG TAB PO PRN ×2 (05:21→20:05)
[2022-09-10 07:18] LABS: Glucose,Whole Blood 238 mg/dL (70-110)
[2022-09-10] MEDS: AMIODARONE 200 MG TAB PO SCH (08:04)
[2022-09-10] MEDS: LINAGLIPTIN 5 MG TABLET PO SCH (08:04)
[2022-09-10] MEDS: METOPROLOL TARTRATE 50 MG TAB PO SCH ×2 (08:04→20:05)
[2022-09-10] MEDS: APIXABAN 2.5 MG TABLET PO SCH ×2 (08:04→20:05)
[2022-09-10] MEDS: GLIMEPIRIDE 1 MG TAB PO SCH (08:05)
[2022-09-10] MEDS: INSULIN ASPART (NovoLOG) 100 UNIT/ML VIAL SQ SCH ×4 (08:05→20:32)
[2022-09-10] MEDS: SODIUM CHLORIDE 0.9% 1,000 ML IV SCH ×2 (10:05→20:06)
[2022-09-10 11:05] LABS: Glucose,Whole Blood 145 mg/dL (70-110)
[2022-09-10 11:15] LABS: ALT 33 U/L (4-49); AST 28 U/L (17-59); African American GFR (CKD) 47 (>60 ml/min/1.73 sqM); Albumin 2.6 g/dL (3.5-5.0); Albumin/Globulin Ratio 1.1; Alkaline Phosphatase 88 U/L (38-126); Anion Gap 6 mmol/L; Blood Urea Nitrogen 25 mg/dL (9-20); Calcium 8.8 mg/dL (8.4-10.2); Carbon Dioxide 27 mmol/L (22-30); Chloride 103 mmol/L (98-107); Globulin 2.4 g/dL; Glucose 214 mg/dL (74-99); Non-African American GFR(CKD) 40 (>60 ml/min/1.73 sqM); Potassium 3.6 mmol/L (3.5-5.1); Sodium 136 mmol/L (137-145); Total Bilirubin 0.4 mg/dL (0.2-1.3)
--- NOTE | 2022-09-10 12:36 | P.HPIM ---
History of Present Illness H&P Date: 09/10/22 history of present illness; patient is a 82-year-old gentleman with past medical history significant for atrial fibrillation , hypertension, diabetes mellitus who presented to the ER because of confusion.According to family members patient has been experiencing worsening confusion. There was no complain of any fever or chills at home. No complain of chest pain or shortness of breath. Patient states that he recently had COVID-19 infection and has been feeling weak after that. initial lab work showed white count 4.5, hemoglobin 11.1, platelet count 135, sodium 136, potassium 3.5, BUN 27, creatinine 1.66, CT brain done showed mild generalized atrophy and mild burden of chronic small vessel ischemic changes. No acute intracranial abnormality chest x-ray negative for acute pulmonary process. Patient admitted to internal medicine service for further evaluation and treatm ent REVIEW OF SYSTEMS: CONSTITUTIONAL: No fever, no malaise, no fatigue. HEENT: No recent visual problems or hearing problems. Denied any sore throat. CARDIOVASCULAR: No chest pain, orthopnea, PND, no palpitations, no syncope. PULMONARY: No shortness of breath, no cough, no hemoptysis. GASTROINTESTINAL: No diarrhea, no nausea, no vomiting, no abdominal pain. NEUROLOGICAL: No headaches, no weakness, no numbness. HEMATOLOGICAL: Denies any bleeding or petechiae. GENITOURINARY: Denies any burning micturition, frequency, or urgency. MUSCULOSKELETAL/RHEUMATOLOGICAL: Denies any joint pain, swelling, or any muscle pain. ENDOCRINE: Denies any polyuria or polydipsia. The rest of the 14-point review of systems is negative. PHYSICAL EXAMINATION: GENERAL: The patient is alert and oriented x3, not in any acute distress. Well developed, well nourished. HEENT: Pupils are round and equally reacting to light. EOMI. No scleral icterus. No conjunctival pallor. Normocephalic, atraumatic. No pharyngeal erythema. No thyromegaly. CARDIOVASCULAR: S1 and S2 present. No murmurs, rubs, or gallops. PULMONARY: Chest is clear to auscultation, no wheezing or crackles. ABDOMEN: Soft, nontender, nondistended, normoactive bowel sounds. No palpable organomegaly. MUSCULOSKELETAL: No joint swelling or deformity. EXTREMITIES: No cyanosis, clubbing, or pedal edema. NEUROLOGICAL: Gross neurological examination did not reveal any focal deficits. SKIN: No rashes. Assessment and plan acute metabolic encephalopathy improving Paroxysmal atrial fibrillation Hypertension Diabetes mellitus plan; Monitor vital signs Monitor CBC Monitor CMP Fall precautions monitor blood sugar levels, continue sliding scale insulin continue amiodarone and Eliquis PT and OT consulted Resume home meds DVT prophylaxis: Past Medical History Past Medical History: Atrial Fibrillation, Diabetes Mellitus, Hypertension, Renal Disease Additional Past Medical History / Comment(s): PNEUMONIA, HIGH CHOLESTEROL History of Any Multi-Drug Resistant Organisms: None Reported Past Surgical History: No Surgical Hx Reported Additional Past Surgical History / Comment(s): [place] teeth removal at age 49, wakes up slowly; colonoscopy Past Anesthesia/Blood Transfusion Reactions: No Reported Reaction Additional Past Anesthesia/Blood Transfusion Reaction / Comment(s): Slow to wake after colonoscopy Past Psychological History: No Psychological Hx Reported Smoking Status: Never smoker Past Alcohol Use History: None Reported Past Drug Use History: None Reported Medications and Allergies Home Medications Medication Instructions Recorded Confirmed Type Cholecalciferol [Vitamin D3 (25 50 mcg PO HS 08/08/22 09/09/22 History Mcg = 1000 Iu)] Glimepiride [Amaryl] 2 mg PO DAILY 08/08/22 09/09/22 History Latanoprost/Pf [Latanoprost 0.005% 1 drop BOTH EYES HS 08/08/22 09/09/22 History Eye Drop] Linagliptin [Tradjenta] 5 mg PO DAILY 08/08/22 09/09/22 History lisinopriL [Zestril] 10 mg PO DAILY 08/08/22 09/09/22 History Apixaban [Eliquis] 2.5 mg PO BID #60 tab 08/10/22 09/09/22 Rx Amiodarone [Cordarone] 200 mg PO DAILY #30 tab 08/12/22 09/09/22 Rx Metoprolol Tartrate [Lopressor] 50 mg PO BID #60 tab 08/12/22 09/09/22 Rx Atorvastatin [Lipitor] 10 mg PO HS #30 tab 08/13/22 09/09/22 Rx Allergies Allergy/AdvReac Type Severity Reaction Status Date / Time Penicillins Allergy Unknown Verified 09/09/22 15:57 Childhood Physical Exam Vitals: Vital Signs Temp Pulse Pulse Resp BP BP Pulse Ox 09/10/22 08:23 94 L 09/10/22 07:38 97.6 F 107 H 18 109/58 94 L 09/10/22 05:14 97.9 F 81 18 114/58 95 09/09/22 20:00 76 16 127/106 95 09/09/22 19:33 98.3 F 78 18 145/66 97 09/09/22 18:20 71 18 135/66 09/09/22 18:00 73 20 157/88 97 09/09/22 17:00 77 18 133/70 95 09/09/22 16:30 75 16 121/63 95 09/09/22 15:03 97.3 F L 82 20 138/76 96 FiO2 09/10/22 08:23 21 09/10/22 07:38 09/10/22 05:14 09/09/22 20:00 09/09/22 19:33 09/09/22 18:20 09/09/22 18:00 09/09/22 17:00 09/09/22 16:30 09/09/22 15:03 Intake and Output 09/09/22 09/10/22 09/10/22 22:59 06:59 14:59 Intake Total 240 Balance 240 Intake: Oral 240 Other: Voiding Method Toilet Toilet # Voids 3 # Bowel Movements 1 Weight 82.554 kg Results CBC & Chem 7: 09/09/22 16:39 09/10/22 07:02 Labs: Abnormal Lab Results - Last 24 Hours (Table) 09/09/22 09/09/22 09/09/22 Range/Units 15:34 15:41 16:39 RBC 3.75 L (4.30-5.90) m/uL Hgb 11.1 L (13.0-17.5) gm/dL Hct 33.3 L (39.0-53.0) % Plt Count 135 L (150-450) k/uL Lymphocytes # 0.4 L (1.0-4.8) k/uL APTT 21.1 L (22.0-30.0) sec Sodium (137-145) mmol/L BUN (9-20) mg/dL Creatinine (0.66-1.25) mg/dL Glucose (74-99) mg/dL POC Glucose (mg/dL) 196 H (70-110) mg/dL Total Protein (6.3-8.2) g/dL Albumin (3.5-5.0) g/dL Urine Protein (Negative) Urine Glucose (UA) (Negative) Urine Blood (Negative) Urine Mucus (None) /hpf 09/09/22 09/09/22 09/09/22 Range/Units 16:39 16:48 20:36 RBC (4.30-5.90) m/uL Hgb (13.0-17.5) gm/dL Hct (39.0-53.0) % Plt Count (150-450) k/uL Lymphocytes # (1.0-4.8) k/uL APTT (22.0-30.0) sec Sodium 136 L (137-145) mmol/L BUN 27 H (9-20) mg/dL Creatinine 1.66 H (0.66-1.25) mg/dL Glucose 163 H (74-99) mg/dL POC Glucose (mg/dL) 159 H (70-110) mg/dL Total Protein 5.7 L (6.3-8.2) g/dL Albumin 3.1 L (3.5-5.0) g/dL Urine Protein 1+ H (Negative) Urine Glucose (UA) 3+ H (Negative) Urine Blood Trace H (Negative) Urine Mucus Rare H (None) /hpf 09/10/22 Range/Units 07:17 RBC (4.30-5.90) m/uL Hgb (13.0-17.5) gm/dL Hct (39.0-53.0) % Plt Count (150-450) k/uL Lymphocytes # (1.0-4.8) k/uL APTT (22.0-30.0) sec Sodium (137-145) mmol/L BUN (9-20) mg/dL Creatinine (0.66-1.25) mg/dL Glucose (74-99) mg/dL POC Glucose (mg/dL) 238 H (70-110) mg/dL Total Protein (6.3-8.2) g/dL Albumin (3.5-5.0) g/dL Urine Protein (Negative) Urine Glucose (UA) (Negative) Urine Blood (Negative) Urine Mucus (None) /hpf Thrombosis Risk Factor Assmnt - Choose All That Apply Any of the Below Risk Factors Present?: Yes
[2022-09-10 15:34] LABS: Basophils # (A) 0.02 X 10*3/uL (0.00-0.10); Basophils % (A) 0.5 %; Eosinophils % (A) 2.6 %; HGB 9.8 g/dL (13.0-17.0); Immature Grans, Automated 0.5 %; Lymphocytes # (A) 0.34 X 10*3/uL (0.90-5.00); Lymphocytes % (A) 8.7 %; MCH 29.1 pg (27.0-32.0); MCHC 31.6 g/dL (32.0-37.0); Mean Platelet Volume 11.4 fL (9.5-12.2); Monocytes # (A) 0.47 X 10*3/uL (0.20-1.00); Monocytes % (A) 12.1 %; NRBC Per 100 WBC 0 /100 WBCS (0.0-0.0); Neutrophils # (A) 2.94 X 10*3/uL (1.80-7.70); Neutrophils % (A) 75.6 %; Platelet Count 117 X 10*3/uL (140-440); RBC 3.37 X 10*6/uL (4.40-5.60); RDW 13.9 % (11.5-14.5); WBC 3.89 X 10*3/uL (4.50-10.00)
[2022-09-10 17:10] LABS: Glucose,Whole Blood 299 mg/dL (70-110)
[2022-09-10] MEDS: ATORVASTATIN 10 MG TAB PO SCH (20:05)
[2022-09-10] MEDS: CHOLECALCIFEROL 25 MCG (1000 IU) TABLET PO SCH (20:05)
[2022-09-10] MEDS: LATANOPROST 0.005% OPHTH DROPS 2.5 ML BTL BOTH EYES SCH (20:05)
[2022-09-10 20:29] LABS: Glucose,Whole Blood 198 mg/dL (70-110)
[2022-09-11 07:34] LABS: Glucose,Whole Blood 148 mg/dL (70-110)
[2022-09-11] MEDS: INSULIN ASPART (NovoLOG) 100 UNIT/ML VIAL SQ SCH ×2 (07:37→13:14)
[2022-09-11 08:02] VITALS: RESP 18
[2022-09-11] MEDS: AMIODARONE 200 MG TAB PO SCH (09:19)
[2022-09-11] MEDS: GLIMEPIRIDE 1 MG TAB PO SCH (09:19)
[2022-09-11] MEDS: APIXABAN 2.5 MG TABLET PO SCH (09:19)
[2022-09-11] MEDS: METOPROLOL TARTRATE 50 MG TAB PO SCH (09:19)
[2022-09-11] MEDS: LINAGLIPTIN 5 MG TABLET PO SCH (09:19)
[2022-09-11 12:14] LABS: Glucose,Whole Blood 309 mg/dL (70-110)
--- NOTE | 2022-09-11 12:31 | P.DS ---
Providers Date of admission: 09/09/22 18:21 Expected date of discharge: 09/11/22 Attending physician: Felipe Huggins Primary care physician: [place] Hospital Course: Discharge diagnoses; acute metabolic encephalopathy resolved Paroxysmal atrial fibrillation Hypertension Diabetes mellitus Hospital course; patient is a 82-year-old gentleman with past medical history significant for atrial fibrillation , hypertension, diabetes mellitus who presented to the ER because of confusion.According to family members patient has been experiencing worsening confusion. There was no complain of any fever or chills at home. No complain of chest pain or shortness of breath. Patient states that he recently had COVID-19 infection and has been feeling weak after that. initial lab work showed white count 4.5, hemoglobin 11.1, platelet count 135, sodium 136, potassium 3.5, BUN 27, creatinine 1.66, CT brain done showed mild generalized atrophy and mild burden of chronic small vessel ischemic changes. No acute intracranial abnormality chest x-ray negative for acute pulmonary process. Patient admitted to internal medicine service for further evaluation and treatment 09/11. Patient seen and examined. Patient continues to be alert and oriented 3, patient was seen by PT and OT, patient ambulating without difficulty. Patient to be discharged home with homecare PHYSICAL EXAMINATION: GENERAL: The patient is alert and oriented x3, not in any acute distress. Well developed, well nourished. HEENT: Pupils are round and equally reacting to light. EOMI. No scleral icterus. No conjunctival pallor. Normocephalic, atraumatic. No pharyngeal erythema. No thyromegaly. CARDIOVASCULAR: S1 and S2 present. No murmurs, rubs, or gallops. PULMONARY: Chest is clear to auscultation, no wheezing or crackles. ABDOMEN: Soft, nontender, nondistended, normoactive bowel sounds. No palpable organomegaly. MUSCULOSKELETAL: No joint swelling or deformity. EXTREMITIES: No cyanosis, clubbing, or pedal edema. NEUROLOGICAL: Gross neurological examination did not reveal any focal deficits. SKIN: No rashes. Patient Condition at Discharge: Stable Plan - Discharge Summary New Discharge Prescriptions: Continue Cholecalciferol [Vitamin D3 (25 Mcg = 1000 Iu)] 50 mcg PO HS Latanoprost/Pf [Latanoprost 0.005% Eye Drop] 1 drop BOTH EYES HS Linagliptin [Tradjenta] 5 mg PO DAILY lisinopriL [Zestril] 10 mg PO DAILY Metoprolol Tartrate [Lopressor] 50 mg PO BID #60 tab Atorvastatin [Lipitor] 10 mg PO HS #30 tab Glimepiride [Amaryl] 2 mg PO DAILY Apixaban [Eliquis] 2.5 mg PO BID #60 tab Amiodarone [Cordarone] 200 mg PO DAILY #30 tab Discharge Medication List Cholecalciferol [Vitamin D3 (25 Mcg = 1000 Iu)] 50 mcg PO HS 08/08/22 [History] Glimepiride [Amaryl] 2 mg PO DAILY 08/08/22 [History] Latanoprost/Pf [Latanoprost 0.005% Eye Drop] 1 drop BOTH EYES HS 08/08/22 [History] Linagliptin [Tradjenta] 5 mg PO DAILY 08/08/22 [History] lisinopriL [Zestril] 10 mg PO DAILY 08/08/22 [History] Apixaban [Eliquis] 2.5 mg PO BID #60 tab 08/10/22 [Rx] Amiodarone [Cordarone] 200 mg PO DAILY #30 tab 08/12/22 [Rx] Metoprolol Tartrate [Lopressor] 50 mg PO BID #60 tab 08/12/22 [Rx] Atorvastatin [Lipitor] 10 mg PO HS #30 tab 08/13/22 [Rx] Follow up Appointment(s)/Referral(s): Addison Blank DO [Primary Care Provider] - 1-2 days Discharge/Stand Alone Forms: Assisted Living Facilities, Community Resources, Help In The Home
[2022-09-11 12:52] VITALS: BP 124/60; PULSE 59; TEMP 97.7
[2022-09-11] MEDS: SODIUM CHLORIDE 0.9% 1,000 ML IV SCH (13:16)
== END 2022-09-11 16:30 | disposition home health service (06) | DRG 72 ==
LOC: EC 14:56 → 5NMEDONC 18:21
PROVIDERS: ADMIT Hospitalist; ATTEND Hospitalist
DX: G93.41 Metabolic encephalopathy (principal); I48.0 Paroxysmal atrial fibrillation; I12.9 Hypertensive chronic kidney disease with stage 1 through stage 4 chronic kidney disease, or unspecified chronic kidney disease; G31.89 Other specified degenerative diseases of nervous system; E11.22 Type 2 diabetes mellitus with diabetic chronic kidney disease; N18.9 Chronic kidney disease, unspecified; E78.00 Pure hypercholesterolemia, unspecified; Z79.01 Long term (current) use of anticoagulants; Z79.4 Long term (current) use of insulin; Z79.84 Long term (current) use of oral hypoglycemic drugs; Z79.899 Other long term (current) drug therapy; Z86.16 Personal history of COVID-19; Z88.0 Allergy status to penicillin
CPT/HCPCS: 36415; 70450; 71046; 80053; 81001; 83036; 84484; 85025; 85610; 85730; 93005; 94760; 96360; 99285

== ENCOUNTER → 2023-05-29 | Outpatient (CLI) | payer MEDICARE ==
--- NOTE | 2023-05-29 15:20 | US ---
EXAMINATION TYPE: US kidneys/renal and bladder DATE OF EXAM: 05/29/2023 COMPARISON: US 08/09/2022 CLINICAL INDICATION: Male, 83 years old with history of N18.32 CHRONIC KIDNEY DISEASE, STAGE 3B; CKD EXAM MEASUREMENTS: Right Kidney: 9.1 x 5.7 x 4.8 cm Left Kidney: 11.1 x 4.7 x 5.3 cm Post Void Residual Volume: 16.1 mL Right Kidney: Tiny 4 mm echogenic focus at the lower pole. No hydronephrosis. Trace perinephric edema could reflect chronic kidney disease or senescent change. Left Kidney: Small 1.2 cm cortical cyst of the lower pole. Large cystic mass of the upper pole measur ing 11.0 x 10.6 x 8.4 cm. No hydronephrosis. Bladder: Appears anechoic Bilateral Jets seen: Not seen during exam. Normal Post Void Residual: Yes IMPRESSION: 1. No hydronephrosis. 2. There may be a tiny 4 mm nonobstructive right renal calculus. 3. Very large cyst measuring 11.0 cm at the upper pole left kidney previously measuring 12.7 cm. 4. Increased postvoid bladder volume of 16 mL falls within acceptable limits.
== END | disposition home or self-care (01) ==
LOC: RADUSWWP 13:00
PROVIDERS: ATTEND Internal Medicine Nephrology
DX: N18.32 Chronic kidney disease, stage 3b (principal); N28.1 Cyst of kidney, acquired
CPT/HCPCS: 76770